=== PATIENT | female | born 1980 | race Caucasian/White ===

== ENCOUNTER 2021-04-13 15:07 | Outpatient (CLI) | payer OTHER, SELFPAY ==
--- NOTE | ~2021-04-13 | CT_ITS ---
EXAMINATION: CT abdomen pelvis w con DATE: 04/13/2021 16:34 INDICATION: Abdominal mass. Unspecified abdominal pain. TECHNIQUE: Computed tomography (CT) of the abdomen and pelvis was performed with 100 mL Omnipaque 350 intravenous contrast. Automated exposure control and iterative reconstruction technique were employe d. The dose-length product was 276.87 mGy-cm. COMPARISON: CT abdomen and pelvis 02/27/2017 FINDINGS: The visualized portions of the lung bases demonstrate mild atelectasis. No pleural effusion . There are bilateral breast implants. The heart size is normal. No pericardial effusion. There is mi ld intrahepatic and extrahepatic biliary duct dilatation. The common duct measures 12 mm. Pneumobilia is noted, likely secondary to sphincterotomy. There are changes of cholecystectomy. The spleen, panc reas, adrenal glands, and kidneys are normal. There are no dilated loops of bowel. There is a large v olume of stool in the colon. The appendix is normal. There are no pathologically enlarged lymph nodes . There is no free intraperitoneal fluid. There is a skin marker in left anterior abdomen. There are changes of disc replacement at L5-S1. IMPRESSION: 1. No abnormal mass in the area of the skin marker in the left anterior abdomen. 2. Mild intrahepatic and extrahepatic biliary duct dilatation status post cholecystectomy. Correlate with liver function tests to determine if this finding is clinically significant. Reviewed, dictated and finalized at location A. IMPRESSION: 1. No abnormal mass in the area of the skin marker in the left anterior abdomen . 2. Mild intrahepatic and extrahepatic biliary duct dilatation status post truong cystectomy. Correlate with liver function tests to determine if this finding is clinically significant.
== END 2021-04-13 15:08 | disposition home or self-care (01) ==
LOC: ANHIMG 15:12
PROVIDERS: PCP Internal Medicine; Visit Provider Obstetrics & Gynecology
DX: R19.00 Intra-abdominal and pelvic swelling, mass and lump, unspecified site (principal); Z90.49 Acquired absence of other specified parts of digestive tract
CPT/HCPCS: 74177; Q9967

== ENCOUNTER 2024-11-18 10:25 | Outpatient (CLI) | payer OTHER, SELFPAY ==
--- NOTE | ~2024-11-18 | CT_ITS ---
CT of the Abdomen and Pelvis: Indication: Abdominal pain Technique: 2.5 mm axial scans were obtained through the abdomen and pelvis following intravenous adm inistration of 100 cc of Omnipaque 350. Dose reduction technique was used on this scan by utilizing a utomated exposure control and iterative reconstruction technique. The dose-length product (DLP) was 5 85.67 mGy-cm. COMPARISON: 04/13/2021 Findings: Scans through the lung bases are unremarkable. There is diffuse hepatic steatosis. Status post cholecystectomy with pneumobilia. The spleen, pancrea s, adrenals and kidneys are within normal limits. No evidence of aortic aneurysm. No lymphadenopath y. No bowel obstruction or bowel wall thickening. There is no evidence to suggest acute appendicitis. Images through the pelvis were performed. Urinary bladder unremarkable. No pelvic mass seen. No ascit es. Impression: No acute abnormality. Diffuse hepatic steatosis. Status post cholecystectomy with pneumobilia. Reviewed, dictated and finalized at [facility]. Impression: No acute abnormality. Diffuse hepatic steatosis. Status post cholecystectomy with pneumobilia.
--- OUTSIDE RECORDS SUMMARY | 2024-11-18 10:37 | XMS_ITS | Clinical Summary ---
Author Organization [facility] Address [address] [place] [address] Care Team Providers Care Data Control Assistant Name Role Phone Eliel Khan MD Primary Care Provider [phone] Source Comments [facility] and Associated Physician Practices is amultiple site organization consisting of ambulatory clinics and hospital sitesin [place], [place], [place] and [place]. This disclosure is being madepursuant to the Care Everywhere program and may not contain all information available regarding this patient. Last updated 18.[facility] Allergies Active Allergy Reactions Criticality Noted Date Comments Amoxicillin Rash Medium 09/08/2015 Cephalexin Rash Medium 09/08/2015 Doxycycline Rash Medium 09/08/2015 Morphine Rash Medium 09/08/2015 Prochlorperazine Unknown 12/09/2019 Medications * Be aware that medications may not be up to date on this document. Alwaysverify current medications with the patient. HYDROcodone-acet aminophen (NORCO) 7.5-325 MG tablet Take by mouth every 6 hours as needed 7 Active ibuprofen (MOTRIN) 800 MG tablet Take 1 (one) tablet by mouth as needed 8 Active estradiol (ESTRACE) 1 MG tablet 1 (one) tablet once daily 9 Active carisoprodol (SOMA) 350 MG tablet 1 (one) tablet 3 times daily 9 Active cyanocobalamin (VITAMIN B-12) 1000 MCG tablet Take 1 (one) tablet by mouth once daily Active VITAMIN D PO Take 1 tablet by mouth once daily Active ondansetron (ZOFRAN) 8 MG tabletIndication s:Intractable chronic migraine without aura and without status migrainosus Take 1 (one) tablet by mouth every 6 hours as needed for Nausea/Vomiti ng 30 tablet 3 2 Active SUMAtriptan (Imitrex) 100 MG tabletIndication s:Intractable chronic migraine without aura and without status migrainosus TAKE 1 TABLET BY MOUTH NEEDED FOR MIGRAINE. MAY REPEAT IN 2 HOURS IF NEEDED. NO MORE THAN 2 DOSES IN 24 HOURS 8 tablet 11 4 Active amitriptyline (Elavil) 100 MG tabletIndication s:Intractable chronic migraine without aura and without status migrainosus Take 1 (one) tablet by mouth at bedtime 90 tablet 3 4 Active propranolol ER 24hr (Inderal LA) 60 MG capsuleIndicatio ns:Intractable chronic migraine without aura and without status migrainosus Take 1 (one) capsule by mouth once daily 90 capsule 3 4 Active azithromycin (Zithromax) 250 MG tablet TAKE 2 TABLETS BY MOUTH ON DAY 1, AND THEN TAKE 1 TABLET BY MOUTH ONCE A DAY ON DAY 2 THROUGH DAY 5 5 Active cetirizine (ZyrTEC) 10 MG tablet Take 1 (one) tablet by mouth once daily 5 Active onabotulinumtoxi n A (Botox) 200 units injectionIndicat ions:Migraine Inject 200 (two hundred) Units into muscle once for 1 dose Reasons: Migraine Headache 1 Each 5 11/14/19 25 Hospital, Clinic, or Other Facility Administered Medication Ordered Dose Route Frequency Start Date End Date Status onabotulinumtoxin A (Botox) injection 200 UnitsIndications:Migraine 200 Units IM ONCE 11/13/2024 11/13/2024 Ended Active Problems Problem Noted Date Diagnosed Date 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 Disorder of soft tissue 08/18/2022 Overview (09/30/2022): Added automatically from request for surgery [id number] Neoplasm of skin 03/14/2019 01/20/2023 Overview (01/20/2023): Acne, unspecified;Practice ID: 0001 Neoplasm of unsp behavior of bone, soft tissue, and skin;Recorded Elsewhere: No Location: [facility] Source: EHR Chronic: N Practice ID: [id number] Billable Time: 10:30:00 AM Neoplastic disease 03/14/2019 04/26/2023 Overview (04/26/2023): Neoplasm of unsp behavior of bone, soft tissue, and skin;Recorded Elsewhere: No Location: [facility] Source: EHR Chronic: N Practice ID: [id number] Billable Time: 10:30:00 AM Intractable chronic migraine without aura and without status migrainosus 08/31/2018 Vitamin B12 deficiency 08/01/2018 Vitamin D deficiency 08/01/2018 Follicular cyst of left ovary 04/11/2018 Endometriosis of pelvic peritoneum 04/11/2018 01/20/2023 Overview (01/20/2023): Endometriosis of pelvic peritoneum;Practice ID: 0001 Benign neoplasm of skin of trunk 03/02/2018 01/20/2023 Overview (01/20/2023): Other benign neoplasm of skin of trunk;Practice ID: 0001 Left lower quadrant pain 12/19/2017 Overview (01/20/2023): LLQ pain;Recorded Elsewhere: No Location: [facility] Source: EHR Chronic: N Practice ID: [id number] Billable Time: 02:30:00 PM Breast lump 12/01/2017 01/20/2023 Overview (01/20/2023): Unspecified lump in unspecified breast;Recorded Elsewhere: No Location: [facility] Source: EHR Chronic: N Practice ID: [id number] Billable Time: 10:30:00 AM Cervical radiculopathy 11/14/2017 Abdominal mass 08/08/2017 Disorder of bile duct 08/08/2017 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 Inflammation of cervix 02/22/2017 Cyst of ovary 01/04/2017 01/20/2023 Overview (01/20/2023): Ovarian cyst, NOS;Recorded Elsewhere: No Location: [facility] Source: EHR Chronic: N Practice ID: [id number] Billable Time: 04:00:00 PM Unspecified ovarian cyst, right side;Recorded Elsewhere: No Location: [facility] Source: EHR Chronic: N Practice ID: [id number] Billable Time: 02:00:00 PM Pelvic and perineal pain 12/22/2016 023 Overview (01/20/2023): Pelvic and perineal pain;Recorded Elsewhere: No Location: [facility] Source: EHR Chronic: N Practice ID: [id number] Billable Time: 03:15:00 PM Pain of female genitalia 12/20/2016 023 Overview (01/20/2023): Dysmenorrhea, unspecified;Recorded Elsewhere: No Location: [facility] Source: EHR Chronic: N Practice ID: [id number] Billable Time: 05:15:00 PM Cervical low risk human oscar llomavirus (HPV) DNA test positive 12/12/2016 Low grade squamous intraepit helial lesion (LGSIL) on Papanicolaou smear of cervix 12/12/2016 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01/20 Overview (01/20/2023): Mild cervical dysplasia;Practice ID: 0001 Abdominal migraine, not intractable 05/06/2016 Non-intractable cyclical vomiting with nausea Migraine without aura and wi thout status migrainosus, not intractable 05/06/2016 Lymphadenopathy 10/21/2015 01/20/2023 Overview (01/20/2023): Enlarged lymph nodes, unspecified;Recorded Elsewhere: No Location: [facility] Source: EHR Chronic: N Practice ID: [id number] Billable Time: 03:15:00 PM Hemorrhoids 10/06/2015 01/20/2023 Overview (01/20/2023): Hemorrhoid;Recorded Elsewhere: No Location: [facility] Source: EHR Chronic: N Practice ID: [id number] Billable Time: 01:15:00 PM Ulceration of vulva 10/06/2015 01/20/2023 Overview (01/20/2023): Ulceration of vulva;Practice ID: 0001 Acute vaginitis 09/02/2015 01/20/2023 Overview (01/20/2023): Vaginitis;Recorded Elsewhere: No Location: [facility] Source: EHR Chronic: N Practice ID: [id number] Billable Time: 02:45:00 PM test negative 06/14/2015 01/21/20 Overview (01/20/2023): Encounter for test, result negative;Practice ID: 0001 Pain of breast 02/26/2015 01/20/2023 Overview (01/20/2023): Mastodynia;Practice ID: 0001 Diarrhea 02/28/2014 Indigestion 02/28/2014 Abdominal hernia 07/17/2013 01/20/2023 Overview (01/20/2023): Hernia of other specified sites without mention of obstruction or gangrene;Recorded Elsewhere: No Location: [facility] Source: EHR Chronic: N Practice ID: [id number] Billable Time: 01:00:00 PM Delivery normal 03/28/2012 01/20/2023 Overview (01/20/2023): Normal delivery;Practice ID: 0001 Single live 03/28/2012 01/20/2023 Overview (01/20/2023): Mother with single liveborn;Practice ID: 0001 Abnormal glucose level 03/20/2012 Overview (01/20/2023): OTHER ABNORMAL GLUCOSE;Recorded Elsewhere: No Location: [facility] Source: EHR Chronic: N Practice ID: [id number] Billable Time: 01:00:00 PM Abnormal glucose tolerance t est (GTT) during , antepartum 03/06/2012 01/20/2023 Overview (01/20/2023): Gestatational Diabetes Antepartum;Practice ID: 0001 Primigravida 02/22/2012 01/20/2023 Overview (01/20/2023): Supervision of normal first ;Practice ID: 0001 Encounters Date Type Department Care Team Description 11/13/2024 9:00 AM CDT Procedure visit [facility] - Neurology [address] [place] [address] [phone] Pamela Abraham N, DO Chronic migraine w/o aura w/o status migrainosus, not intractable 11/13/2024 Travel from Last 3 Months Family History Medical History Relation Name Comments None Known Father Status: Alive None Known Mother Status: Alive Migraine Neg Hx Relation Name Status Comments Father Mother Social History Tobacco Use Types Packs/Day Years Used Date Smoking Tobacco: Every Day Cigarettes Smokeless Tobacco: Never Tobacco Cessation:Ready to Q uit: Not Asked; Counseling Given: Not Answered Alcohol Use Standard Drinks/Week Comments No 0 (1 standard drink = 0.6 oz pur e alcohol) Comments No Sex and Gender Information Value Date Recorded Sex Assigned at Not on file Legal Sex Female 5:14 PM 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 Gender Identity Not on file Sexual Orientation Not on file Last Filed Vital Signs Vital Sign Reading Time Taken Comments Blood Pressure 125/85 11/13/2024 8:34 AM CDT Pulse 69 11/13/2024 8:34 AM CDT Temperature 36.7 C (98.1 F) 03/01/2024 10:20 AM CDT Respiratory Rate 20 03/01/2024 10:20 AM CDT Oxygen Saturation 98% 11/13/2024 8:34 AM CDT Inhaled Oxygen Concentration - - Weight 66 kg (145 lb 8 oz) 11/13/2024 8:34 AM CD T Height 162.6 cm (5' 4 ) 03/01/2024 10:27 AM CDT Body Mass Index 24.98 03/01/2024 10:27 AM CDT Plan of Treatment Upcoming Encounters Date Type Department Care Team (Late st Contact Info) Description 02/12/2025 9:00 AM CDT Procedure visit [facility] - Neurology [address] [place] [address] [phone] Pamela Abraham Jacques, DO [address] [place] [phone] Health Maintenance Due Date Last Done Comments HIV SCREENING 1996 HEPATITIS C SCREENING 11/28/1999 DTAP/TDAP/TD VACCINES (1 - Tdap) 2000 HEPATITIS B VACCINE (1 of 3 - 19+ 3-dose series) 2000 PNEUMOCOCCAL VACCINE (1 of 2 - PCV) 2000 SCREENING FOR DIABETES 05/23/2023 09/13/2016 COVID-19 VACCINE (1 - 2023-2 5 season) 2024 DEPRESSION SCREENING 07/10/2024 MAMMOGRAM 09/10/2026 09/10/2024, 09/10/2024 PAP SMEAR 08/20/2027 08/20/2024, 12/25/2020 INFLUENZA VACCINE (Season Ended) 2029 Postponed from 03/10 (Other Provider Directed) LIPID TESTING 08/20/2029 08/20/2024, 12/25/2020 ZOSTER VACCINE (1 of 2) 12/03/2031 HIB VACCINE Aged Out No longer eligi ble based on patient's age to complete this topic HPV VACCINE Aged Out No longer eligi ble based on patient's age to complete this topic MENINGOCOCCAL (Group B) VACCINE SHARED DECISION-MAKING Aged Out No longer eligible b ased on patient's age to complete this topic MENINGOCOCCAL GROUPS A/C/Y/W VACCINE Aged Out No longer eligible b ased on patient's age to complete this topic Procedures Procedure Name Priority Date/Time Associated Diagnosis Comments BASIC METABOLIC PANEL (CALCIUM TOTAL) STAT 09/13/2016 5:03 PM 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 from Last 3 Months or Most Recently Relevant to Health Maintenance Results * (ABNORMAL) BASIC METABOLIC PANEL (CALCIUM TOTAL) (09/13/2016 5:03 PM 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) BUN 6(L) 7 - 26 mg/dL [facility] Creatinine 0.6 0.6 - 1.2 mg/dL [facility] Sodium 142 136 - 145 mmol/L [facility] Potassium 4.4 3.5 - 4.5 mmol/L [facility] Chloride 108(H) 98 - 107 mmol/L [facility] CO2 20(L) 22 - 29 mmol/L [facility] Glucose 95 70 - 115 mg/dL [facility] Calcium 9.5 8.4 - 10.2 mg/dL [facility] Anion Gap 18 8 - 18 [facility] BUN/Creatinine Ratio 10 7 - 23 [facility] Osmolality Calculated 291 270 - 300 mOsm/kg [facility] eGFR >60 >60 mL/min/1.7 3 m2 [facility] Blood specimen (specimen) BLOOD SPECIMEN / Unknown 09/13/2016 5:03 PM 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 09/13/2016 5:05 PM 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 us Surekha Khan MD LAB - CHEMISTRY ORDERABLES Fin al Result Performing Organization Address City/State/[facility] Co de Phone Number [address] [phone] from Last 3 Months or Most Recently Relevant to Health Maintenance Insurance [facility] Care Teams Data Control Assistant Relationship Specialty Start Date End Date Eliel Khan MD [address] [place] [address] PCP - General Internal Medicine 05/08/23
--- OUTSIDE RECORDS SUMMARY | 2024-11-18 10:37 | XMS_ITS | Clinical Summary ---
Author Organization [facility] Address [facility] [place] [address] Care Team Providers Care Manager Of Software Name Role Phone Eliel Khan MD Primary Care Provider [phone] Allergies Active Allergy Reactions Criticality Noted Date Comments Amoxicillin Rash Medium 09/08/2015 Cephalexin Rash Medium 09/08/2015 Doxycycline Rash,Swelling Medium 09/04/2013 Morphine Rash Medium 09/08/2015 Medications amitriptyline 100 MG tablet Take 100 mg by mouth. 6 Active ondansetron 8 MG disintegrating tablet 7 Active valACYclovir 1 G tablet 7 Active carisoprodol 350 MG tablet Take 350 mg by mouth 3 (three) times daily as needed for Muscle Spasms. Active ibuprofen 800 MG tablet 8 Active capsaicin 0.1 % cream APPLY SPARINGLY TO AFFECTED AREA(S) 3 TIMES A DAY 8 Active estradiol 1 MG tablet 12 9 Active vitamin B-12 (CYANOCOBALAMIN) 1000 mcg tablet Take 1,000 mcg by mouth daily. 9 Active SUMAtriptan 100 MG tablet 5 9 Active hydrocodone-acetam inophen (NORCO) 7.5-325 MG tablet 3 times daily Active diazepam 5 MG tablet 0 8 Active amitriptyline 100 MG tablet Take 100 mg by mouth. 9 Active ondansetron 8 MG tablet 0 9 Active cetirizine 10 MG tablet 6 Active acyclovir 400 MG tablet 0 9 Active onabotulinumtoxinA 100 units injection Inject 200 Units into the muscle every 3 (three) months. 8 Active Active Problems Problem Noted Date Diagnosed Date Cervical radiculopathy 11/14/2017 Family History Medical History Relation Comments Disc problems Father DDD Mother Relation Status Comments Brother Alive Father Alive Mother Alive Social History Tobacco Use Types Packs/Day Years Used Date Smoking Tobacco: Every Day Cigarettes 0.5 20 Smokeless Tobacco: Never Tobacco Cessation:Ready to Q uit: No; Counseling Given: Yes Comments:Verbalized beneftis of smoking cessation. Recommended she quit. Alcohol Use Standard Drinks/Week Comments No 0 (1 standard drink = 0.6 oz pur e alcohol) Comments No Sex and Gender Information Value Date Recorded Sex Assigned at Not on file Legal Sex Female 5:43 PM CDT Gender Identity Not on file Sexual Orientation Not on file Last Filed Vital Signs Vital Sign Reading Time Taken Comments Blood Pressure 123/92 01/01/2019 12:03 PM CDT Pulse 66 01/01/2019 12:03 PM CDT Temperature 36.7 C (98 F) 01/01/2019 10:24 AM CDT Respiratory Rate 16 01/01/2019 12:0 3 PM CDT Oxygen Saturation 97% 01/01/2019 12: 03 PM CDT Inhaled Oxygen Concentration - - Weight 65.2 kg (143 lb 12.8 oz) 019 10:35 AM CDT Height 162.6 cm (5' 4 ) 11/20/2018 10:3 5 AM CDT Body Mass Index 24.68 11/20/2018 10:35 AM CDT Plan of Treatment Health Maintenance Due Date Last Done Comments Annual Physical 1984 Hepatitis C 12/03/1999 DTaP, Tdap and Td Vaccines ( 1 - Tdap) 2000 Hepatitis B Vaccines (1 of 3 - 19+ 3-dose series) 2000 Pneumococcal Vaccine: Pediat rics (0 to 5 Years) and At-Risk Patients (6 to 49 Years) (1 of 2 - PCV) 2000 Mammogram Screening 2021 COVID-19 Vaccine ( - 2023-2 5 season) 2024 HPV Vaccines Aged Out No longer eligi ble based on patient's age to complete this topic Meningococcal B Vaccine Aged Out No l onger eligible based on patient's age to complete this topic Meningococcal Vaccine Aged Out No john verenice eligible based on patient's age to complete this topic RSV Immunizations Under 20 Months Aged Out No longer eligible based on patient's age to complete this topic Additional Health Concerns Infection Onset Date Last 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
--- OUTSIDE RECORDS SUMMARY | 2024-11-18 10:37 | XMS_ITS ---
Author Organization 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 Disorder of soft tissue 08/18/2022 Overview (08/18/2022): Added automatically from request for surgery [id number] Neoplasm of skin 03/14/2019 Overview (08/19/2024): Acne, unspecified;Practice ID: 0001 Neoplasm of unsp behavior of bone, soft tissue, and skin;Recorded Elsewhere: No Location: [facility] Source: EHR Chronic: N Practice ID: [id number] Billable Time: 10:30:00 AM Neoplastic disease 03/14/2019 Overview (08/19/2024): Neoplasm of unsp behavior of bone, soft tissue, and skin;Recorded Elsewhere: No Location: [facility] Source: EHR Chronic: N Practice ID: [id number] Billable Time: 10:30:00 AM Intractable chronic migraine without aura and without status migrainosus 08/31/2018 Vitamin D deficiency 08/01/2018 Vitamin B12 deficiency 08/01/2018 Endometriosis of pelvic peritoneum 04/11/2018 Overview (08/19/2024): Endometriosis of pelvic peritoneum;Practice ID: 0001 Follicular cyst of left ovary 04/11/2018 Overview (08/19/2024): Follicular cyst of left ovary;Practice ID: 0001 Benign neoplasm of skin of trunk 03/02/2018 Overview (08/19/2024): Other benign neoplasm of skin of trunk;Practice ID: 0001 Left lower quadrant pain 12/19/2017 Overview (08/19/2024): LLQ pain;Recorded Elsewhere: No Location: [facility] Source: EHR Chronic: N Practice ID: [id number] Billable Time: 02:30:00 PM Breast lump 12/01/2017 Overview (08/19/2024): Unspecified lump in unspecified breast;Recorded Elsewhere: No Location: [facility] Source: EHR Chronic: N Practice ID: [id number] Billable Time: 10:30:00 AM Cervical radiculopathy 11/14/2017 Abdominal pain of multiple sites 08/11/2017 Abdominal mass 08/08/2017 Disorder of bile duct 08/08/2017 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 Endometriosis of uterus 02/22/2017 Overview (08/19/2024): Endometriosis of uterus;Practice ID: 0001 Inflammation of cervix 02/22/2017 Overview (08/19/2024): Inflammatory disease of cervix uteri;Practice ID: 0001 Cyst of ovary 01/04/2017 Overview (08/19/2024): Ovarian cyst, NOS;Recorded Elsewhere: No Location: [facility] Source: EHR Chronic: N Practice ID: [id number] Billable Time: 04:00:00 PM Unspecified ovarian cyst, right side;Recorded Elsewhere: No Location: [facility] Source: EHR Chronic: N Practice ID: [id number] Billable Time: 02:00:00 PM Pelvic and perineal pain 12/22/2016 Overview (08/19/2024): Pelvic and perineal pain;Recorded Elsewhere: No Location: [facility] Source: EHR Chronic: N Practice ID: [id number] Billable Time: 03:15:00 PM Pain of female genitalia 12/20/2016 Overview (08/19/2024): Dysmenorrhea, unspecified;Recorded Elsewhere: No Location: [facility] Source: EHR Chronic: N Practice ID: [id number] Billable Time: 05:15:00 PM Acne 12/12/2016 Overview (08/19/2024): Acne, unspecified;Practice ID: 0001 Cervical low risk human oscar llomavirus (HPV) DNA test positive 12/12/2016 Overview (08/19/2024): Cervical low risk HPV DNA test positive;Practice ID: 0001 Low grade squamous intraepit helial lesion (LGSIL) on Papanicolaou smear of cervix 12/12/2016 Overview (08/19/2024): Low grade intrepith lesion cyto smr crvx (LGSIL);Recorded Elsewhere: No Location: [facility] Source: EHR Chronic: N Practice ID: [id number] Billable Time: 04:00:00 PM 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 (08/19/2024): Mild cervical dysplasia;Practice ID: 0001 Abdominal migraine, not intractable 05/06/2016 Migraine without aura and wi thout status migrainosus, not intractable 05/06/2016 Lymphadenopathy 10/21/2015 Overview (08/19/2024): Enlarged lymph nodes, unspecified;Recorded Elsewhere: No Location: [facility] Source: EHR Chronic: N Practice ID: [id number] Billable Time: 03:15:00 PM Lymphadenopathy 10/21/2015 Overview (08/19/2024): Enlarged lymph nodes, unspecified;Recorded Elsewhere: No Location: [facility] Source: EHR Chronic: N Practice ID: [id number] Billable Time: 03:15:00 PM Hemorrhoids 10/06/2015 Overview (08/19/2024): Hemorrhoid;Recorded Elsewhere: No Location: [facility] Source: EHR Chronic: N Practice ID: [id number] Billable Time: 01:15:00 PM Ulceration of vulva 10/06/2015 Overview (08/19/2024): Ulceration of vulva;Practice ID: 0001 Acute vaginitis 09/02/2015 Overview (08/19/2024): Vaginitis;Recorded Elsewhere: No Location: [facility] Source: EHR Chronic: N Practice ID: [id number] Billable Time: 02:45:00 PM Pain of breast 02/26/2015 Overview (08/19/2024): Mastodynia;Practice ID: 0001 Diarrhea 02/28/2014 Indigestion 02/28/2014 Non-intractable cyclical vomiting with nausea Abdominal hernia 07/17/2013 Overview (08/19/2024): Hernia of other specified sites without mention of obstruction or gangrene;Recorded Elsewhere: No Location: [facility] Source: EHR Chronic: N Practice ID: [id number] Billable Time: 01:00:00 PM Delivery normal 03/28/2012 Overview (08/19/2024): Normal delivery;Practice ID: 0001 Abnormal glucose level 03/20/2012 Overview (08/19/2024): OTHER ABNORMAL GLUCOSE;Recorded Elsewhere: No Location: [facility] Source: EHR Chronic: N Practice ID: [id number] Billable Time: 01:00:00 PM Abnormal glucose level 03/20/2012 Overview (08/19/2024): OTHER ABNORMAL GLUCOSE;Recorded Elsewhere: No Location: [facility] Source: EHR Chronic: N Practice ID: [id number] Billable Time: 01:00:00 PM Abnormal glucose tolerance t est (GTT) during , antepartum 03/06/2012 Overview (08/19/2024): Gestatational Diabetes Antepartum;Practice ID: 0001 Current Treatment and Therapy Plans No current plan information found. Past Treatment and Therapy Plans No past plan information found. Lifetime Dose Tracking * Chemical Lifetime Dose Automatic Entry Manual Entr y DLP 262 mGycm 262 mGycm 0 mGycm
--- OUTSIDE RECORDS SUMMARY | 2024-11-18 10:37 | XMS_ITS | Data Portability ---
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 Patient will come back in a year unless there are new symptoms. [email or web address] Not available 12/25/2020 14:32:17 08/20/2024 08/20/2024 Annual gynecological exam performed. Patient will come back in a year unless there are new symptoms. Not available 08/20/2024 12:42:32 Plan of Treatment Reminders Order Date Submit Date Provider Last Modified By Organization Details Last Modified Time Details Appointments None recorded. Lab CBC w/ auto diff 2024 025 [facility] (Lab), [address], [place], [address], 5 05:44:58 CMP, serum or plasma 2024 025 [facility] (Lab), [address], [place], [address], 5 05:45:00 lipid panel, blood 2024 025 [facility] (Lab), [address], [place], [address], 5 05:44:59 TSH, serum or plasma 2024 025 [facility] (Lab), [address], [place], [address], 5 05:44:58 25-hydroxy vitamin D2 + 25-hydroxy vitamin D3, QN, serum or plasma 2024 025 [facility] (Lab), [address], [place], [address], 5 05:44:59 estradiol, serum 2024 025 [facility] (Lab), [address], [place], [address], 5 05:44:59 CBC w/ auto diff 2020 021 [facility] (Lab), [address], [place], [address], 1 03:36:11 CMP, serum or plasma 2020 021 [facility] (Lab), [address], [place], [address], 1 03:36:13 lipid panel, blood 2020 021 [facility] (Lab), [address], [place], [address], 1 03:36:12 TSH, serum or plasma 2020 021 [facility] (Lab), [address], [place], [address], 1 03:36:13 vitamin D, 25-hydroxy , total, serum 2020 021 [facility] (Lab), [address], [place], [address], 1 03:36:13 Referral None recorded. Procedures None recorded. Surgeries None recorded. Imaging None recorded. Medication Orders estradiol 1 mg tablet 2020 021 [facility] [address], [address], [place], [address], 14:47:12 Patient TargetsNo targets recorded. Patient InstructionsNo instructions recorded. Reason for Referral None Reported. Results Created Date Observation Date Name Description Value Unit Range Abnormal Flag Note LastModifiedBy Organization Detail LastModifiedTime 12/26/19 21 12/25/2020 CBC w/ auto diff WBC 10.0 10'3/ uL 3.6-10 .2 Not Available [facility] (Lab) [address], [place], [address], 12/26/2020 03:36:11 12/26/19 21 12/25/2020 CBC w/ auto diff RBC 4.30 10'6/ uL (based on docume nted legal sex) 4.10-5 .30 Not Available [facility] (Lab) [address], [place], [address], 12/26/2020 03:36:11 12/26/19 21 12/25/2020 CBC w/ auto diff HGB 13.6 g/dL (based on docume nted legal sex) 11.9-1 5.8 Not Available [facility] (Lab) [address], [place], [address], 12/26/2020 03:36:11 12/26/19 21 12/25/2020 CBC w/ auto diff HCT 41.7 % (based on docume nted legal sex) 37.4-4 8.3 Not Available [facility] (Lab) [address] [place], [address], 12/26/2020 03:36:11 12/26/19 21 12/25/2020 CBC w/ auto diff MCV 96.0 fL 82.0-9 9.0 Not Available [facility] (Lab) [address] [place], [address], 12/26/2020 03:36:11 12/26/19 21 12/25/2020 CBC w/ auto diff MCH 31.0 pg 27.0-3 3.0 Not Available [facility] (Lab) [address], [place], [address], 12/26/2020 03:36:11 12/26/19 21 12/25/2020 CBC w/ auto diff MCHC 33.0 g/dL 32.0-3 6.0 Not Available [facility] (Lab) [address], [place], [address], 12/26/2020 03:36:11 12/26/19 21 12/25/2020 CBC w/ auto diff RDW 13.0 % 11.0-1 5.0 Not Available [facility] (Lab) [address], [place], [address], 12/26/2020 03:36:11 12/26/19 21 12/25/2020 CBC w/ auto diff plt 258 10'3/ uL 150-45 0 Not Available [facility] (Lab) [address], [place], [address], 12/26/2020 03:36:11 12/26/19 21 12/25/2020 CBC w/ auto diff MPV 11.1 fL Not Available [facility] (Lab) [address], [place], [address], 12/26/2020 03:36:11 12/26/19 21 12/25/2020 CBC w/ auto diff NRBC's 0.00 % 0 Not Available [facility] (Lab) [address], [place], [address], 12/26/2020 03:36:11 12/26/19 21 12/25/2020 CBC w/ auto diff absolute NRBCs 0.0 10'3/ uL 0 Not Available [facility] (Lab) [address], [place], [address], 12/26/2020 03:36:11 12/26/19 21 12/25/2020 CBC w/ auto diff neutrophils 57.0 % 37.0-7 2.0 Not Available [facility] (Lab) [address] [facility], [place], [address], 12/26/2020 03:36:11 12/26/19 21 12/25/2020 CBC w/ auto diff lymphocytes 34.0 % 16.0-4 8.0 Not Available [facility] (Lab) [address] [facility], [place], [address], 12/26/2020 03:36:11 12/26/19 21 12/25/2020 CBC w/ auto diff monocytes 6.0 % 4.0-14 .0 Not Available [facility] (Lab) [address] [place], [address], 12/26/2020 03:36:11 12/26/19 21 12/25/2020 CBC w/ auto diff eosinophils 2.0 % 0.0-9. 0 Not Available [facility] (Lab) [address] [place], [address], 12/26/2020 03:36:11 12/26/19 21 12/25/2020 CBC w/ auto diff basophils 1.0 % 0.0-2. 0 Not Available [facility] (Lab) [address] [place], [address], 12/26/2020 03:36:11 12/26/19 21 12/25/2020 CBC w/ auto diff immature granulocytes 0.0 % no define d refere nce range Not Available [facility] (Lab) [address] [place], [address], 12/26/2020 03:36:11 12/26/19 21 12/25/2020 CBC w/ auto diff absolute neutrophils 5.8 10'3/ uL 1.1-6. 0 Not Available [facility] (Lab) [address] [place], [address], 12/26/2020 03:36:11 12/26/19 21 12/25/2020 CBC w/ auto diff absolute lymphocytes 3.4 10'3/ uL 0.7-3. 4 Not Available [facility] (Lab) [address] [place], [address], 12/26/2020 03:36:11 12/26/19 21 12/25/2020 CBC w/ auto diff absolute monocytes 0.6 10'3/ uL 0.3-1. 0 Not Available [facility] (Lab) [address] [facility], [place], [address], 12/26/2020 03:36:11 12/26/19 21 12/25/2020 CBC w/ auto diff absolute eosinophils 0.2 10'3/ uL 0.0-0. 6 Not Available [facility] (Lab) [address] [facility], [place], [address], 12/26/2020 03:36:11 12/26/19 21 12/25/2020 CBC w/ auto diff absolute basophils 0.1 10'3/ uL 0.0-0. 1 Not Available [facility] (Lab) [address] [place], [address], 12/26/2020 03:36:11 12/26/19 21 12/25/2020 CBC w/ auto diff absolute immature granulocytes 0.00 10'3/ uL 0.00-0 .10 2020 1:45 AM: P indic ates parti al resul ts on a panel have been relea sed. Addit ional resul ts will follo w. 2020 1:45 AM: This resul t has been final verif ied. No addit ional or mcconnell ed resul ts are expec maria ines. Not Available [facility] (Lab) [address] [place], [address], 12/26/2020 03:36:11 12/26/19 21 12/25/2020 lipid panel , blood total cholesterol 201 mg/dL 0-199 high Not Available [facility] (Lab) [address], [place], [address], 12/26/2020 03:36:12 12/26/19 21 12/25/2020 lipid panel , blood triglyceride s 152 mg/dL 0.00-1 50.00 high NCEP Refer ence Value s for Trigl yceri emerson: Tamiko l: <150 mg/dL Borde rline High: 150 - 199 mg/dL High: 200 - 499 mg/dL Very High: >/= 500 mg/dL Not Available [facility] (Lab) [address], [place], [address], 12/26/2020 03:36:12 12/26/19 21 12/25/2020 lipid panel , blood HDL cholesterol 48 mg/dL 23-92 Not Available [facility] (Lab) [address], [place], [address], 12/26/2020 03:36:12 12/26/19 21 12/25/2020 lipid panel , blood LDL cholesterol 123 mg/dL 0-99 high Cutof f value s recom joe d by the Natio nal Darlene stero l Educa tion Progr am: EDUARDO ABLE: Darlene stero l <200 mg/dL LDL <100 mg/dL BORDE RLINE : Darlene stero l 200-2 39 mg/dL LDL 101-1 59 mg/dL HIGHE R RISK: Darlene stero l >240 mg/dL LDL >160 mg/dL , HDL <40 mg/dL Not Available [facility] (Lab) [address] [facility], [place], [address], 12/26/2020 03:36:12 12/26/1912/25/2020 lipid panel , blood non-HDL cholesterol 153 mg/dL no refere nce range A reaso nable goal for non-H DL darlene stero l is one that is 30 mg/dL highe r than the LDL darlene stero l goal. Not Available [facility] (Lab) [address] [place], [address], 12/26/2020 03:36:12 12/26/19 21 12/25/2020 lipid panel , blood chol/HDL ratio 4.2 . 0.0-5. 0 Not Available [facility] (Lab) [address] [facility], [place], [address], 12/26/2020 03:36:12 12/26/19 21 12/25/2020 CMP, serum or plasm a sodium 138 mmol/ L 136-14 5 Not Available [facility] (Lab) [address], [place], [address], 12/26/2020 03:36:12 12/26/19 21 12/25/2020 CMP, serum or plasm a potassium 4.2 mmol/ L 3.5-5. 1 Not Available [facility] (Lab) [address] [place], [address], 12/26/2020 03:36:12 12/26/19 21 12/25/2020 CMP, serum or plasm a chloride 104 mmol/ L 98-107 Not Available [facility] (Lab) [address] [facility], [place], [address], 12/26/2020 03:36:12 12/26/19 21 12/25/2020 CMP, serum or plasm a carbon dioxide 27 mmol/ L 21-31 Not Available [facility] (Lab) [address] [place], [address], 12/26/2020 03:36:12 12/26/19 21 12/25/2020 CMP, serum or plasm a anion gap 7 mmol/ L 4-13 Not Available [facility] (Lab) [address] [place], [address], 12/26/2020 03:36:12 12/26/19 21 12/25/2020 CMP, serum or plasm a blood urea nitrogen 11 mg/dL 7-25 Not Available [facility] (Lab) [address], [place], [address], 12/26/2020 03:36:12 12/26/19 21 12/25/2020 CMP, serum or plasm a creatinine 0.75 mg/dL 0.60-1 .30 Not Available [facility] (Lab) [address] [place], [address], 12/26/2020 03:36:12 12/26/19 21 12/25/2020 CMP, serum or plasm a GFR () 104 mL/mi n/1.7 3_m2 60-300 Not Available [facility] (Lab) [address] [facility], [place], [address], 12/26/2020 03:36:12 12/26/19 21 12/25/2020 CMP, serum or plasm a GFR (others) 86 mL/mi n/1.7 3_m2 60-300 Not Available [facility] (Lab) [address] [facility], [place], [address], 12/26/2020 03:36:12 12/26/19 21 12/25/2020 CMP, serum or plasm a calcium 9.2 mg/dL 8.6-10 .2 Not Available [facility] (Lab) [address] [place], [address], 12/26/2020 03:36:12 12/26/1912/25/2020 CMP, serum or plasm a glucose 114 mg/dL 70-100 high Not Available [facility] (Lab) [address] [place], [address], 12/26/2020 03:36:12 12/26/1912/25/2020 CMP, serum or plasm a protein, total 6.9 g/dL 6.4-8. 3 Not Available [facility] (Lab) [address] [place], [address], 12/26/2020 03:36:12 12/26/19 21 12/25/2020 CMP, serum or plasm a albumin 4.5 g/dL 3.5-5. 0 Not Available [facility] (Lab) [address] [place], [address], 12/26/2020 03:36:12 12/26/19 21 12/25/2020 CMP, serum or plasm a ALT 13 units /L 9-43 Not Available [facility] (Lab) [address] [place], [address], 12/26/2020 03:36:12 12/26/19 21 12/25/2020 CMP, serum or plasm a alkaline phosphatase 37 units /L 34-104 Not Available [facility] (Lab) [address] [place], [address], 12/26/2020 03:36:12 12/26/19 21 12/25/2020 CMP, serum or plasm a AST 14 units /L 13-39 Not Available [facility] (Lab) [address] [place], [address], 12/26/2020 03:36:12 12/26/19 21 12/25/2020 CMP, serum or plasm a bilirubin, total 0.3 mg/dL 0.2-1. 2 Not Available [facility] (Lab) [address] [place], [address], 12/26/2020 03:36:12 12/26/19 21 12/25/2020 TSH, serum or plasm a TSH 0.86 uIU/m L 0.30-5 .33 Not Available [facility] (Lab) [address] [place], [address], 12/26/2020 03:36:13 12/26/19 21 12/25/2020 vitam in D, 25-hy droxy , total , serum vitamin D, 25-hydroxy, total 44.4 NG/mL 30-80 NOTE: Defic iency : <20 ng/mL Insuf ficie ncy: 20-29 ng/mL Optim um Level : 30-80 ng/mL Possi ble Toxic ity: >80 ng/mL Most patie nts with toxic ity have level s >150 ng/mL . Not Available [facility] (Lab) [address], [place], [address], 12/26/2020 03:36:13 12/26/19 21 12/25/2020 pap, IG + HR HPV image guided Pap, HPV regardless of Pap result SEE RESULT S BELOW CASE REPOR T: Cytol ogy Gynec ologi danilo Repor t Case: [id number] Autho antonio roque Provi jose: Haley Bucio MD Colle cted: 12/25 1413 Order ing Locat ion: [place] Path[facility] log[facility] Recei soledad: 12/26 0238 First Scree n: Daisha Beth, CT Speci men: Scree yun Pap - Image d, Cervi x STATE MENT OF ADEQU ACY: Satis facto ry for evalu ation Trans forma tion zone compo nent absen t FINAL DIAGN OSIS: Negat demetri for Intra epith elial Lesio n or Jass alvarez Elect michael mariaa efrain d by Daisha Beth, CT on 2020 at 3:59 PM ----- ----- ----- ----- ----- ----- ----- ----- ----- ----- ----- ----- ----- ----- ----- ----- ----- ---- HPV RESUL TS: HPV mRNA E6/E7 : No HPV mRNA Detec maria ines NOTE: This high risk HPV mRNA assay detec ts fourt een high- risk HPV types (16, 18, 31, 33, 35, 39, 45, 51, 52, 56, 58, 59, 66, 68) witho ut diffe renti ation . CHART ABLE COMME NT: Note: This speci men was revie wed by a Cytot echno logis t and/o r Patho logis t (as indic ated in this repor t) after evalu ation using the Thinp rep Imagi ng Syste m. CLINI DANILO INFOR MATIO N: Menst rual Statu s: LMP (if appli cable ): 015 Clini danilo Histo ry/Pr eviou s Pap: Type of Neopl nino (if appli cable ): Other Histo ry: Hormo sujata (if appli cable ): PAP EDUCA RADHA L NOTE: The Pap Test is a scree yun test with an inher ent false negat demetri rate. Liqui d-bas e sampl ing may decre ase, but will not elimi judd, false negat demetri resul ts. A negat demetri resul t does not precl ude the prese nce and/o r devel opmen t of disea se, since the prese nce of abnor mal cells in the sampl e depen ds on the locat ion of the lesio n and sampl ing techn ique. Fredy nued regul ar scree yun is the best metho d of cance r preve ntion . If repor maria ines cytol ogic findi ng do not corre late with physi danilo and/o r histo rical findi ngs, furth er inves tigat ion is recom joe d, as clini delta garcia nted. Not Available [facility] (Lab) [address] [facility], [place], [address], 12/28/2020 17:02:25 08/20/19 25 08/20/2024 CBC W/DIF F WBC 9.7 10'3/ uL 3.5-10 .5 Not Available [facility] (Lab) [address], [place], [address], 08/21/2024 05:44:57 08/20/19 25 08/20/2024 CBC W/DIF F RBC 5.03 10'6/ uL (based on docume nted legal sex) 3.80-5 .20 Not Available [facility] (Lab) [address] [place], [address], 08/21/2024 05:44:57 08/20/19 25 08/20/2024 CBC W/DIF F HGB 14.8 g/dL (based on docume nted legal sex) 11.6-1 5.4 Not Available [facility] (Lab) [address], [place], [address], 08/21/2024 05:44:57 08/20/19 25 08/20/2024 CBC W/DIF F HCT 44.9 % (based on docume nted legal sex) 34.0-4 5.0 Not Available [facility] (Lab) [address], [place], [address], 08/21/2024 05:44:57 08/20/19 25 08/20/2024 CBC W/DIF F MCV 89.3 fL 80.0-9 9.0 Not Available [facility] (Lab) [address], [place], [address], 08/21/2024 05:44:57 08/20/19 25 08/20/2024 CBC W/DIF F MCH 29.4 pg 27.0-3 4.0 Not Available [facility] (Lab) [address], [place], [address], 08/21/2024 05:44:57 08/20/19 25 08/20/2024 CBC W/DIF F MCHC 33.0 g/dL 32.0-3 5.5 Not Available [facility] (Lab) [address], [place], [address], 08/21/2024 05:44:57 08/20/19 25 08/20/2024 CBC W/DIF F RDW 13.3 % 11.0-1 5.0 Not Available [facility] (Lab) [address], [place], [address], 08/21/2024 05:44:57 08/20/19 25 08/20/2024 CBC W/DIF F plt 297 10'3/ uL 150-40 0 Not Available [facility] (Lab) [address], [place], [address], 08/21/2024 05:44:57 08/20/19 25 08/20/2024 CBC W/DIF F MPV 10.5 fL 8.8-12 .1 Not Available [facility] (Lab) [address] [facility], [place], [address], 08/21/2024 05:44:57 08/20/19 25 08/20/2024 CBC W/DIF F neutrophils 57.6 % 34.0-7 3.0 Not Available [facility] (Lab) [address] [facility], [place], [address], 08/21/2024 05:44:57 08/20/19 25 08/20/2024 CBC W/DIF F lymphocytes 33.0 % 15.0-5 0.0 Not Available [facility] (Lab) [address] [facility], [place], [address], 08/21/2024 05:44:57 08/20/19 25 08/20/2024 CBC W/DIF F monocytes 6.9 % 1.0-15 .0 Not Available [facility] (Lab) [address] [facility], [place], [address], 08/21/2024 05:44:57 08/20/19 25 08/20/2024 CBC W/DIF F eosinophils 1.5 % 0.0-8. 0 Not Available [facility] (Lab) [address], [place], [address], 08/21/2024 05:44:57 08/20/19 25 08/20/2024 CBC W/DIF F basophils 0.7 % 0.0-2. 0 Not Available [facility] (Lab) [address] [facility], [place], [address], 08/21/2024 05:44:57 08/20/19 25 08/20/2024 CBC W/DIF F immature granulocytes 0.3 % no define d refere nce range Immat ure Granu locyt es (IG) repre sents autom ated enume ratio n of Metam yeloc ytes, Myelo cytes and Promy elocy yesi when IG is < 5%. Blast s are not inclu ded in IG and repor maria ines separ ately if prese nt. Not Available [facility] (Lab) [address] [facility], [place], [address], 08/21/2024 05:44:57 08/20/19 25 08/20/2024 CBC W/DIF F absolute neutrophils 5.6 10'3/ uL 1.5-8. 0 Not Available [facility] (Lab) [address] [facility], [place], [address], 08/21/2024 05:44:57 08/20/19 25 08/20/2024 CBC W/DIF F absolute lymphocytes 3.2 10'3/ uL 1.0-4. 0 Not Available [facility] (Lab) [address] [facility], [place], [address], 08/21/2024 05:44:57 08/20/19 25 08/20/2024 CBC W/DIF F absolute monocytes 0.7 10'3/ uL 0.2-1. 0 Not Available [facility] (Lab) [address] [facility], [place], [address], 08/21/2024 05:44:57 08/20/19 25 08/20/2024 CBC W/DIF F absolute eosinophils 0.2 10'3/ uL 0.0-0. 6 Not Available [facility] (Lab) [address] [facility], [place], [address], 08/21/2024 05:44:57 08/20/19 25 08/20/2024 CBC W/DIF F absolute basophils 0.1 10'3/ uL 0.0-0. 3 Not Available [facility] (Lab) [address] [place], [address], 08/21/2024 05:44:57 08/20/19 25 08/20/2024 CBC W/DIF F absolute immature granulocytes 0.0 10'3/ uL 0.00-0 .10 Refer ence range s for nonbi nary/ inter sex or unspe cifie d gende r patie nts have not been estab lishe d. Pleas e refer to the follo wing table for range s estab lishe d for cisge nder patie nts and evalu ate in the clini danilo bhupinder xt of the indiv idual patie nt: https ://sonya de los santos book. nm.or g/Gen derX Not Available [facility] (Lab) [address] [facility], [place], [address], 08/21/2024 05:44:57 08/20/1908/20/2024 TSH, REFLE X FREE T4 TSH 1.19 uIU/m L 0.30-5 .33 Not Available [facility] (Lab) [address] [facility], [place], [address], 08/21/2024 05:44:58 08/20/19 25 08/20/2024 VITAM IN D, 25-OH (TOTA L D2/D3 ) vitamin D, 25-hydroxy, total 25.1 NG/mL 30.0-1 00.0 low Sugge stive of Defic iency : <20 ng/mL Sugge stive of Insuf ficie ncy: 20-29 ng/mL Sugge stive of Suffi cienc y: 30-10 0 ng/mL Sugge stive of Toxic ity: >150 ng/mL Not Available [facility] (Lab) [address] [place], [address], 08/21/2024 05:44:59 08/20/19 25 08/20/2024 ESTRA DIOL estradiol 27.0 pg/mL This assay was perfo rmed using [employer] ratio n reage nts and test kits. Value s obtai paula with other assay metho ds or kits canno t be used inter mcconnell eably . Femal e Estra diol Range s: Folli cular phase 12.4- 233 pg/mL Ovula tion phase 41.0- 398 pg/mL Lutea l phase 22.3- 341 pg/mL Postm enopa usal <5-13 8 pg/mL Healt hy Pregn ant Women 1st Trime ster 154-3 243 pg/mL 2nd Trime ster 1561- 57344 pg/mL 3rd Trime ster 8525- >3000 0 pg/mL Not Available [facility] (Lab) [address] [place], [address], 08/21/2024 05:44:59 08/20/19 25 08/20/2024 LIPID PANEL ,AMA (LDL- CALC) total cholesterol 302 mg/dL 0-199 high Not Available [facility] (Lab) [address] [place], [address], 08/21/2024 05:44:59 08/20/19 25 08/20/2024 LIPID PANEL ,AMA (LDL- CALC) triglyceride s 164 mg/dL 0-150 high NCEP Refer ence Value s for Trigl yceri emerson: Tamiko l: <150 mg/dL Borde rline High: 150 - 199 mg/dL High: 200 - 499 mg/dL Very High: >/= 500 mg/dL Not Available [facility] (Lab) [address] [place], [address], 08/21/2024 05:44:59 08/20/19 25 08/20/2024 LIPID PANEL ,AMA (LDL- CALC) HDL cholesterol 56 mg/dL >40 Not Available [facility] (Lab) [address] [place], [address], 08/21/2024 05:44:59 08/20/19 25 08/20/2024 LIPID PANEL ,AMA (LDL- CALC) LDL cholesterol 213 mg/dL 0-99 high Cutof f value s recom joe d by the Natio nal Darlene stero l Educa tion Progr am: EDUARDO ABLE: Darlene stero l <200 mg/dL LDL <100 mg/dL BORDE RLINE : Darlene stero l 200-2 39 mg/dL LDL 101-1 59 mg/dL HIGHE R RISK: Darlene stero l >240 mg/dL LDL >160 mg/dL , HDL <40 mg/dL Not Available [facility] (Lab) [address] [facility], [place], [address], 08/21/2024 05:44:59 08/20/19 25 08/20/2024 LIPID PANEL ,AMA (LDL- CALC) non-HDL cholesterol 246 mg/dL no refere nce range A reaso nable goal for non-H DL darlene stero l is one that is 30 mg/dL highe r than the LDL darlene stero l goal. Not Available [facility] (Lab) [address], [place], [address], 08/21/2024 05:44:59 08/20/19 25 08/20/2024 LIPID PANEL ,AMA (LDL- CALC) chol/HDL ratio 5.4 . 0.0-5. 0 high On November 01, 2022, [facility] labor atori es mcconnell ed the equat ion for calcu latin g estim ated low-d ensit y lipop rotei n-cho leste rol (LDL- C) from the Fried dipti equat ion to the Bernadine chad/Chalino aggarwal equat ion. This new equat ion is only valid for lipid panel s with trigl yceri emerson < 400 mg/dL . Studi es have demon strat ed that this new equat ion will impro ve the accur acy of LDL-C , espec ially in scena [place] when LDL-C hilda ntrat ions are relat ively low (< 100 mg/dL ), trigl yceri emerson are eleva maria ines, or patie nt is non-f astin g. Refer ences : - Bernadine bonilla, Niko Balnd, John Avalos , Darin roth, Parrish Hdz, Parrish chowdhury, Jared lynn , and Damian Mccall . 2013. Comp ariso n of a Novel Metho d vs the Fried dipti Equat ion for Estim ating Low-D ensit y Lipop rotei n Darlene stero l Level s from the Stand bunny Lipid Chan phillips. JAYNE: The [employer] [facility] iatio n 310 ): 2060- . - Xiomy morris V, Concepcion J, Jozef morris A, Joey M, Aleida quintero R, Zachary morris E, Mary lynn RS, Cal SR, Bernadine n SS. Fast ing Versu s Nonfa sting and Low-D ensit y Lipop rotei n Darlene stero l Accur acy. Circu latio n. 2017Jul 11;137 (1):1 0-19. Not Available [facility] (Lab) [address] [place], [address], 08/21/2024 05:44:59 08/20/19 25 08/20/2024 CMP(C OMPRE HENSI VE METAB OLIC PANEL ) sodium 139 mmol/ L 133-14 6 Not Available [facility] (Lab) [address] [place], [address], 08/21/2024 05:45:00 08/20/19 25 08/20/2024 CMP(C OMPRE HENSI VE METAB OLIC PANEL ) potassium 4.1 mmol/ L 3.5-5. 1 Not Available [facility] (Lab) [address] [place], [address], 08/21/2024 05:45:00 08/20/19 25 08/20/2024 CMP(C OMPRE HENSI VE METAB OLIC PANEL ) chloride 102 mmol/ L 98-107 Not Available [facility] (Lab) [address] [place], [address], 08/21/2024 05:45:00 08/20/19 25 08/20/2024 CMP(C OMPRE HENSI VE METAB OLIC PANEL ) carbon dioxide 20 mmol/ L 21-31 low Not Available [facility] (Lab) [address] [place], [address], 08/21/2024 05:45:00 08/20/19 25 08/20/2024 CMP(C OMPRE HENSI VE METAB OLIC PANEL ) anion gap 17 mmol/ L 4-13 high Not Available [facility] (Lab) [address] [facility], [place], [address], 08/21/2024 05:45:00 08/20/19 25 08/20/2024 CMP(C OMPRE HENSI VE METAB OLIC PANEL ) blood urea nitrogen 11 mg/dL 7-25 Not Available [facility] (Lab) [address] [facility] [facility], [place], [address], 08/21/2024 05:45:00 08/20/19 25 08/20/2024 CMP(C OMPRE HENSI VE METAB OLIC PANEL ) creatinine 0.80 mg/dL 0.60-1 .30 Not Available [facility] (Lab) [address] [facility] [facility], [place], [address], 08/21/2024 05:45:00 08/20/19 25 08/20/2024 CMP(C OMPRE HENSI VE METAB OLIC PANEL ) egfrcr (CKD-epi 2020) >90 mL/mi n/1.7 3_m2 >=60 Not Available [facility] (Lab) [address] [place], [address], 08/21/2024 05:45:00 08/20/19 25 08/20/2024 CMP(C OMPRE HENSI VE METAB OLIC PANEL ) calcium 10.2 mg/dL 8.3-10 .5 Not Available [facility] (Lab) [address] [place], [address], 08/21/2024 05:45:00 08/20/19 25 08/20/2024 CMP(C OMPRE HENSI VE METAB OLIC PANEL ) glucose 85 mg/dL 70-100 Not Available [facility] (Lab) [address] [facility], [place], [address], 08/21/2024 05:45:00 08/20/19 25 08/20/2024 CMP(C OMPRE HENSI VE METAB OLIC PANEL ) protein, total 7.6 g/dL 6.4-8. 3 Not Available [facility] (Lab) [address] [facility], [place], [address], 08/21/2024 05:45:00 08/20/19 25 08/20/2024 CMP(C OMPRE HENSI VE METAB OLIC PANEL ) albumin 5.0 g/dL 3.5-5. 0 Not Available [facility] (Lab) [address] [facility], [place], [address], 08/21/2024 05:45:00 08/20/19 25 08/20/2024 CMP(C OMPRE HENSI VE METAB OLIC PANEL ) ALT 58 units /L 9-43 high Not Available [facility] (Lab) [address], [place], [address], 08/21/2024 05:45:00 08/20/19 25 08/20/2024 CMP(C OMPRE HENSI VE METAB OLIC PANEL ) alkaline phosphatase 51 units /L 34-104 Not Available [facility] (Lab) [address] [facility], [place], [address], 08/21/2024 05:45:00 08/20/19 25 08/20/2024 CMP(C OMPRE HENSI VE METAB OLIC PANEL ) AST 28 units /L 13-39 Not Available [facility] (Lab) [address] [place], [address], 08/21/2024 05:45:00 08/20/19 25 08/20/2024 CMP(C OMPRE HENSI VE METAB OLIC PANEL ) bilirubin, total 0.3 mg/dL 0.2-1. 2 Not Available [facility] (Lab) [address] [place], [address], 08/21/2024 05:45:00 08/20/19 25 08/20/2024 IMAGE GUIDE D PAP AND HPV REGAR DLESS image guided Pap, HPV regardless of Pap result SEE RESULT S BELOW CASE REPOR T: Cytol ogy Gynec ologi danilo Repor t Case: [id number] Autho antonio roque Provi jose: Haley Bucio MD Colle cted: 08/20 1338 Order ing Locat ion: [place] Patho logpaulina Recei soledad: 08/21 0208 First Noahe n: Tia Espinoza, CT Rescr een: Philipp Moreno, CT Speci men: Karime malcolm Pap - Image d, Vagin a STATE MENT OF ADEQU ACY: Satis facto ry for evalu ation ----- ----- ----- ----- ----- ----- ----- ----- ----- ----- ----- ----- ----- ----- ----- ----- ----- ---- FINAL DIAGN OSIS: Negat deemtri for Intra epith elial Oziel bonilla or Jass alvarez (NIL) . Elect sneha leroy efrain d by Philipp Moreno, CT on 2024 at 1520 [employer] ----- ----- ----- ----- ----- ----- ----- ----- ----- ----- ----- ----- ----- ----- ----- ----- ----- ---- HPV RESUL TS: HPV mRNA E6/E7 : No HPV mRNA Detec maria ines NOTE: This high risk HPV mRNA assay detec ts fourt een high- risk HPV types (16, 18, 31, 33, 35, 39, 45, 51, 52, 56, 58, 59, 66, 68) witho ut diffe renti ation . COMME NT: This speci men was revie wed by a Cytot echno logis t and/o r Patho logis t (as indic ated in this repor t) after evalu ation using the Thinp rep Imagi ng Syste m. CLINI DANILO INFOR MATIO N: Menst rual Statu s: LMP (if appli cable ): Clini danilo Histo ry/Pr eviou s Pap: Type of Neopl nino (if appli cable ): Signi fican t Clini danilo Findi ngs: Other Histo ry: Hormo sujata (if appli cable ): PAP EDUCA RADHA L NOTE: The Pap Test is a scree yun test with an inher ent false negat demetri rate. Liqui d-bas ed sampl ing may decre ase, but will not elimi judd, false negat demetri resul ts. A negat demetri resul t does not precl ude the prese nce and/o r devel opmen t of disea se, since the prese nce of abnor mal cells in the sampl e depen ds on the locat ion of the lesio n and sampl ing techn ique. Fredy nued regul ar scree uyn is the best metho d of cance r preve ntion . If repor maria ines cytol ogic findi ng do not corre late with physi danilo and/o r histo rical findi ngs, furth er inves tigat ion is recom joe d, as clini delta warra nted. Not Available [facility] (Lab) [address], [place], [address], 08/23/2024 16:24:09 04/14/20 21 04/13/2021 CT, abdom en + pelvi s, w/ contr ast No observ ation record ed. [facility] [address], [place], [address], 04/15/2021 21:02:22 Result Notes None recorded. Problems Name Problem SNOMED Code Status Onset Date Resolution Date Notes Provider Name and Address Organization Details Recorded Time Lymphade nopathy 48065834 Completed 201512/25/2020 Enlarged lymph nodes, unspecif ied;Javier rded Elsewher e: No Locat ion: [facility] S ource: EHR Acute Care Clinical Nurse Specialist jaydon: N Practi ce ID: 0001 Coy lable Time: 03:15:00 PM Clare Gregg [facility] 1 14:34:32 Surveill ance of contrace ption Completed 201412/25/2020 Encounte r for surveill ance of contrace ptives, unspecif ied;Javier rded Elsewher e: No Locat ion: [facility] S ource: EHR Acute Care Clinical Nurse Specialist jaydon: N Jacintati ce ID: 0001 Coy lable Time: 01:00:00 PM Clare Gregg [facility] 1 14:35:06 Cyst of ovary [id number] Completed 201612/25/2020 Unspecif ied ovarian cyst, right side;Rec orded Elsewher e: No Locat ion: [facility] N Jacintati ce ID: 0001 Coy lable Time: 02:00:00 PM Clarery Gregg [facility] 1 14:33:44 Pelvic and perineal pain [id number] Completed 201612/25/2020 Pelvic and perineal pain;Rec orded Elsewher e: No Locat ion: [facility] S ource: EHR Acute Care Clinical Nurse Specialist jaydon: N Jacintati ce ID: 0001 Coy lable Time: 03:15:00 PM Clarery Gregg [facility] 14:34:41 Left lower quadrant pain [id number] Completed 201712/25/2020 LLQ pain;Rec orded Elsewher e: No Locat ion: [facility]: N Jacintati ce ID: 0001 Coy lable Time: 02:30:00 PM Clarery Gregg [facility] 14:34:28 Neoplast ic disease [id number] Completed 201812/25/2020 Neoplasm of unsp behavior of bone, soft tissue, and skin;Rec orded Elsewher e: No Locat ion: [facility]: N Jacintati ce ID: 0001 Coy lable Time: 10:30:00 AM Clare pro [facility] 1 14:34:35 Clinical finding Completed 201412/25/2020 Presence of (intraut erine) contrace ptive device;R ecorded Elsewher e: No Locat ion: [facility] S ource: EHR Acute Care Clinical Nurse Specialist jaydon: N Jacintati ce ID: 0001 Coy lable Time: 03:00:00 PM Clare pro [facility] 1 14:33:38 Clinical finding Completed 201412/25/2020 Encounte r for surveill ance of injectab le contrace ptive;Re corded Elsewher e: No Locat ion: [facility] S ource: EHR Acute Care Clinical Nurse Specialist jaydon: N Jacintati ce ID: 0001 Coy lable Time: 01:00:00 PM Clare Gregg [facility] 1 14:33:35 Finding of sensatio n of breast Completed 201512/25/2020 Mastodyn ia;Recor ded Elsewher e: No Locat ion: [facility] S ource: EHR Acute Care Clinical Nurse Specialist jaydon: N Jacintati ce ID: 0001 Coy lable Time: 10:15:00 AM Clare pro [facility] 1 14:34:12 Hernia of abdomina l cavity [id number] Completed 201312/25/2020 Hernia of other specifie d sites without mention of obstruct ion or gangrene ;Recorde d Elsewher e: No Locat ion: [facility] S ource: EHR Acute Care Clinical Nurse Specialist jaydon: N Jacintati ce ID: 0001 Coy lable Time: 01:00:00 PM Clare pro [facility] 1 14:34:21 Insertio n of intraute rine contrace ptive device Completed 201412/25/2020 Encounte r for insertio n of intraute rine contrace ptive device;R ecorded Elsewher e: No [facility]at [facility]: EHR Acute Care Clinical Nurse Specialist jaydon: N Jacintati ce ID: 0001 Coy lable Time: 03:00:00 PM Clarery Gregg [facility] 14:34:25 Contrace ptive sheath status [id number] Completed 201512/25/2020 IUD follow up;Recor ded Elsewher e: No [facility]at [facility] S ource: EHR Acute Care Clinical Nurse Specialist jaydon: N Jacintati ce ID: 0001 Coy lable Time: 02:45:00 PM Clare [facility] 14:33:40 Hemorrho ids [id number] Completed 201512/25/2020 Hemorrho id;Recor ded Elsewher e: No [facility]: [facility] Acute Care Clinical Nurse Specialist jaydon: N Jacintati ce ID: 0001 Coy lable Time: 01:15:00 PM Clarery Gregg [facility] 14:34:19 Glucose level outside referenc e range [id number] Completed 201112/25/2020 OTHER ABNORMAL GLUCOSE; Recorded Elsewher e: No Locat ion: [facility] S ource: EHR Acute Care Clinical Nurse Specialist jaydon: N Jacintati ce ID: 0001 Coy lable Time: 01:00:00 PM Clare Gregg [facility] 14:34:16 Acute vaginiti s [id number] Completed 201512/25/2020 Vaginiti s;Record ed Elsewher e: No Locat ion: [facility] S ource: EHR Acute Care Clinical Nurse Specialist jaydon: N Jacintati ce ID: 0001 Coy lable Time: 02:45:00 PM Clarery Gregg [facility] 14:33:22 Family planning surveill ance Completed 201412/25/2020 Surveill ance of other contrace ptive method;R ecorded Elsewher e: No Locat ion: [facility] S ource: EHR Acute Care Clinical Nurse Specialist jaydon: N Jacintati ce ID: 0001 Coy lable Time: 11:30:00 AM Clare pro [facility] 1 14:33:58 Breast lump [id number] Completed 201712/25/2020 Unspecif ied lump in unspecif ied breast;R ecorded Elsewher e: No Locat ion: [facility] S ource: EHR Acute Care Clinical Nurse Specialist jaydon: N Jacintati ce ID: 0001 Coy lable Time: 10:30:00 AM Clare Gregg [facility] 1 14:33:30 Pain in female genitali a Completed 201612/25/2020 Dysmenor patricia, unspecif ied;Javier rded Elsewher e: No Locat ion: [facility]: Chad Neal ce ID: 0001 Coy lable Time: 05:15:00 PM Clare Gregg [facility] 1 14:34:00 Cyst of ovary Completed 201612/25/2020 Ovarian cyst, NOS;Javier rded Elsewher e: No Locat ion: [facility] S ource: EHR Acute Care Clinical Nurse Specialist jaydon: Chad Neal ce ID: 0001 Coy lable Time: 04:00:00 PM Clare pro [facility] 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 14:34:39 Adult health examinat ion Completed 201412/25/2020 Routine general medical examinat ion at a health care facility ;Practic e ID: 0001 Clare pro [facility] 14:33:24 Speciali zed medical examinat ion Completed 201412/25/2020 Routine gynecolo gical examinat ion;Prac dora ID: 0001 Clare pro [facility] 14:35:08 Pregnanc y test negative [id number] Completed 201412/25/2020 Encounte r for pregnanc y test, result negative ;Practic e ID: 0001 Clare pro [facility] 14:34:47 Ulcerati on of vulva [id number] Completed 201512/25/2020 Ulcerati on of vulva;Pr actice ID: 0001 Clare pro [facility] 14:35:03 Disease [id number] Completed 201512/25/2020 Oth cond assoc w female genital organs and menstrua l cycle;Pr actice ID: 0001 Clare pro [facility] 14:34:05 Neoplasm of uterine cervix Completed 201512/25/2020 Mild cervical dysplasi a;Practi ce ID: 0001 Clare pro [facility] 14:35:19 Sexual function painful Completed 201512/25/2020 Unspecif ied dyspareu dg;Prac dora ID: 0001 Clare pro [facility] 14:34:56 Acne [id number] Completed 201612/25/2020 Acne, unspecif ied;Prac dora ID: 0001 [facility] 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 14:34:07 Finding of regulari ty of menstrua l cycle Completed 201612/25/2020 Irregula r menstrua tion, unspecif ied;Prac dora ID: 0001 [facility] 14:34:10 Inflamma tion of cervix 64013714 Active 2016 Inflamma tory disease of cervix uteri;Pr actice ID: 0001 Not Available [facility] 0 16:59:00 Endometr iosis of uterus [id number] Completed 201612/25/2020 Endometr iosis of uterus;P ractice ID: 0001 [facility] 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 14:35:11 Benign neoplasm of skin of trunk [id number] Completed 201712/25/2020 Other benign neoplasm of skin of trunk;Pr actice ID: 0001 [facility] 14:33:27 Endometr iosis of pelvic peritone [id number] Completed 201712/25/2020 Endometr iosis of pelvic peritone um;Pract ice ID: 0001 [facility] 14:33:51 Follicul ar cyst of left ovary 53507031699 869810 Active 2017 Follicul ar cyst of left ovary;Pr actice ID: 0001 Not Available [facility] 0 16:59:02 Procedur e on genitour inary system Completed 201712/25/2020 Encounte r for surgical aftcr followin g surgery on the sys;Prac dora ID: 0001 [facility] 14:34:52 Postoper ative care Completed 201712/25/2020 Encounte r for surgical aftcr followin g surgery on the sys;Prac dora ID: 0001 [facility] 14:34:45 Postcoit al finding [id number] Completed 201812/25/2020 Postcoit al and contact bleeding ;Practic e ID: 0001 [facility] 14:34:43 Exposure to sexually transmis sible disorder Completed 201812/25/2020 Contact w and exposure to infect w a sexl mode of transmis s;Practi ce ID: 0001 [facility] 14:33:56 Finding of desire for urinatio n [id number] Completed 201812/25/2020 Urgency of urinatio n;Practi ce ID: 0001 [facility] 14:34:03 Syphilis test finding 430126664 Active 2018 Encntr screen for infectio ns w sexl mode of transmis s;Practi ce ID: 0001 Not Available [facility] 0 16:59:[address] Concept Completed 201712/25/2020 Encntr for general adult medical exam w/o abnormal findings ;Recorde d Elsewher e: No Locat ion: [facility] S ource: EHR Acute Care Clinical Nurse Specialist jaydon: N Practi ce ID: 0001 Coy lable Time: 01:30:00 PM Clare [facility] 1 14:35:13 Vaginola bial hernia Completed 201512/25/2020 Other specifie d noninfla mmatory disorder s of vagina;R ecorded Elsewher e: No Locat ion: [facility] S ource: EHR Acute Care Clinical Nurse Specialist jaydon: N Practi ce ID: 0001 Coy lable Time: 01:15:00 PM Clare Gregg [facility] 1 14:35:00 Evaluati on finding [id number] Completed 201712/25/2020 Oth abn and inconclu sive findings on dx imaging of breast;R ecorded Elsewher e: No Locat ion: [facility] S ource: EHR Acute Care Clinical Nurse Specialist jaydon: N Practi ce ID: 0001 Coy lable Time: 01:26:46 PM Clare Gregg [facility] 1 14:33:33 Primigra juaquin [id number] Completed 201112/25/2020 Supervis ion of normal first pregnanc y;Practi ce ID: 0001 Clare Gregg [facility] 1 14:34:50 Dietary manageme nt surveill ance Completed 201112/25/2020 Dietary surveill ance and counseli ng;Pract ice ID: 0001 Clare Gregg [facility] 14:33:48 Glucose toleranc e test during pregnanc y - baby not yet delivere d outside referenc e range 894412810 Completed 201112/25/2020 Gestatat ional Diabetes Antepart um;Pract ice ID: 0001 [facility] 14:33:20 Delivery normal [id number] Completed 201112/25/2020 Normal delivery ;Practic e ID: 0001 Clare pro [facility] 14:33:46 Single live from singleto n pregnanc y [id number] Completed 201112/25/2020 Mother with single liveborn ;Practic e ID: 0001 Clare Gregg [facility] 14:35:16 Screenin g for malignan t neoplasm of cervix Completed 201312/25/2020 Pap Smear;Pr actice ID: 0001 Clare Gregg [facility] 14:34:54 Problem Notes None recorded. Procedures Surgical History Date Name Laterality Status Provider Name and Address Organization Details Recorded Time 12/26/19 21 Date of Last Pap Smear completed Alice Ross [facility] 08/20/2024 12:51:43 02/23/20 17 Vaginal hysterectomy completed [facility] 04/07/2021 10:58:59 12/29/19 17 Colposcopy completed [facility] 09/25/2020 11:53:53 Hysteroscopy completed [facility] 09/25/2020 11:57:00 left oophorectomy completed [facility] 09/25/2020 11:58:17 augmentation mammoplasty completed [facility] 09/25/2020 11:59:31 repair of umbilical hernia completed [facility] 09/25/2020 11:59:50 Imaging Results Imaging Date Name Status [facility] by [facility] Details LastModified Time 04/13/2021 CT, abdomen + pelvis, w/ contrast completed [facility] [address], [place], [address], 04/15/2021 21:02:22 Procedure Notes None recorded. Medical Equipment None Reported. Allergies Allergen ID Allergen Name Allergen Category Reaction Reaction Severity Criticality Documentation Date Start Date Code Code System Note Provider Name and Address Organization Details Recorded Time 68499 doxycycli ne Not available Not available Not available Not available 06/26/2020 3640 RxNorm Comme nt: [facility]; Not Available [facility] 0 14:20:43 35668 morphine medicatio n Not available Not available Not available 06/26/2020 7052 RxNorm Comme nt: [facility]at [facility]; Not Available [facility] 0 14:20:43 Medications Name Sig Start Date Stop Date Status Note LastModified by Organization Details LastModified Time carisopro dol 350 mg tablet TAKE 1 TABLET BY MOUTH THREE TIMES DAILY NEEDED FOR MUSCLE SPASM active Not Available Not Available No t Available Mirena 21 mcg/24 hr (up to 8 years) 52 mg intrauter ine device 03/23 completed Prescrib ed Elsewher e: Yes Loca tion: [facility] odify By: [email or web address] Quintero ncounter DateTime : 12/13/19 17 04:00:00 PM Not Available Not Available Not Available prednison e 10 mg tablet 08/20 completed Not Available Not Available Not Available cetirizin e 10 mg tablet TAKE 1 TABLET BY MOUTH ONCE DAILY active Not Available Not Available No t Available azithromy maria del rosario 250 mg tablet TAKE 2 TABLETS BY MOUTH ON DAY 1, AND THEN TAKE 1 TABLET BY MOUTH ONCE A DAY ON DAY 2 THROUGH DAY 5 08/20 completed Not Available Not Available Not Available ibuprofen 800 mg tablet TAKE 1 TABLET BY MOUTH EVERY 8 HOURS NEEDED FOR PAIN 08/20 completed Not Available Not Available Not Available sumatript an 100 mg tablet active Not Available Not Available Not Available ondansetr on HCl 8 mg tablet TAKE 1 TABLET BY MOUTH TWICE DAILY NEEDED FOR NAUSEA active Not Available Not Available No t Available propranol ol ER 60 mg capsule,2 4 hr,extend ed release TAKE 1 CAPSULE BY MOUTH ONCE DAILY active Not Available Not Available No t Available acyclovir 400 mg tablet take 1 tablet by oral route every 12 hours 12/30 completed Prescrib ed Elsewher e: No [facility] By: shreyas perera DateTime : 03/06/20 02:05:18 PM Not Available Not Available Not Available ciproflox acin 500 mg tablet take 1 tablet by oral route every 12 hours 08/20 completed Not Available Not Available Not Available spironola ctone 25 mg tablet take 1 tablet by oral route every day 06/27 completed Prescrib ed Elsewher e: No Locat ion: [facility] odify By: shreyas perera DateTime : 05/26/20 15 01:00:00 PM Not Available Not Available Not Available Macrobid 100 mg capsule take 1 capsule by oral route every 12 hours with food, as directed 06/27 completed Prescrib ed Elsewher e: No Locat ion: [facility] odify By: shreyas perera DateTime : 05/16/20 17 01:30:00 PM Not Available Not Available Not Available Metrogel Vaginal 0.75 % (37.5 mg/5 gram) insert 1 applicat orful by vaginal route every day at bedtime 03/23 completed Prescrib ed Elsewher e: No Locat ion: [facility] odify By: home marquezuntsher DateTime : 02/17/20 17 02:00:00 PM Not Available Not Available Not Available estradiol 1 mg tablet TAKE 1 TABLET BY MOUTH ONCE DAILY active Not Available Not Available No t Available Depo-Prov era 150 mg/mL intramusc ular suspensio n inject 1 millilit er by intramus cular route every 3 months 03/23 completed Prescrib ed Elsewher e: No Locat ion: [facility] odify By: home [email or web address] DateTime : 12/23/19 17 03:15:00 PM Not Available Not Available Not Available amitripty line 10 mg tablet take 1 tablet by oral route 3 times every day 08/20 completed Prescrib ed Elsewher e: Yes Loca tion: [facility] odify By: [email or web address] Encounte r DateTime : 10/06/19 16 01:15:00 PM Not Available Not Available Not Available hydrocodo ne 7.5 mg-acetam inophen 325 mg tablet TAKE 1 TABLET BY MOUTH THREE TIMES DAILY NEEDED FOR PAIN active Not Available Not Available No t Available Valtrex 1 gram tablet take 1 tablet by oral route every day 12/30 completed Prescrib ed Elsewher e: No Locat ion: [facility] odify By: [email or web address] perera DateTime : 02/08/20 18 10:45:58 AM Not Available Not Available Not Available Banophen 25 mg capsule 08/20 completed Not Available Not Available Not Available [place] 10 mg-325 mg tablet take 1 tablet by oral route every 4 - 6 hours as needed for pain 08/20 completed Prescrib ed Elsewher e: Yes Loca tion: [facility] odify By: [email or web address] Encounte r DateTime : 10/06/19 16 01:15:00 PM Not Available Not Available Not Available estradiol 0.01% (0.1 mg/gram) vaginal cream insert (1G) by vagina every night for one month, then twice a week 08/20 completed Prescrib ed Elsewher e: No Locat ion: [facility] odify By: [email or web address] Encounte r DateTime : 08/15/19 19 04:00:00 PM Not Available Not Available Not Available methylpre dnisolone 4 mg tablets in a dose pack 08/20 completed Not Available Not Available Not Available Zofran 2 mg/mL intraveno us solution inject 2 millilit er by intraven ous route over for nausea or vomiting after surgery 08/20 completed Prescrib ed Elsewher e: Yes Loca tion: [facility] odify By: [email or web address] Encounte r DateTime : 10/06/19 16 01:15:00 PM Not Available Not Available Not Available amitripty line 100 mg tablet TAKE 1 TABLET BY MOUTH NIGHTLY active Not Available Not Available No t Available Depo-Prov era 150 mg/mL intramusc ular syringe inject 1 millilit er by intramus cular route every 3 months 10/05 completed Prescrib ed Elsewher e: No Locat ion: [facility] odify By: [email or web address] Encounte r DateTime : 02/05/20 15 12:03:02 PM Not Available Not Available Not Available Soma 250 mg tablet take 1 tablet by oral route 3 times every day before meals and at bedtime 08/15 completed Prescrib ed Elsewher e: Yes Loca tion: [facility] odify By: home [email or web address] DateTime : 10/06/19 16 01:15:00 PM Not Available Not Available Not Available Anusol-HC 2.5 % topical cream with perineal applicato r apply by topical route 2 times every day to the affected area(s) 12/12 completed Prescrib ed Elsewher e: No Locat ion: [facility] odify By: home ponder DateTime : 10/06/19 16 01:15:00 PM Not Available Not Available Not Available Vitals Date Recorded Body weight Systolic blood pressure Diastolic blood pressure Provider Name and Address Organization Details Last Updated DateTime 12/25/2020 65612.6 g 116 mm[Hg] 79 mm[Hg] [facility] 12/25/2020 14:32:56 Date Recorded Body weight Systolic blood pressure Diastolic blood pressure Provider Name and Address Organization Details Last Updated DateTime 04/08/2021 00986.01 g 112 mm[Hg] 76 mm[Hg] [facility] 04/08/2021 12:06:32 Date Recorded Body height Body mass index (BMI) Body weight Systolic blood pressure Diastolic blood pressure Provider Name and Address Organization Details Last Updated DateTime 04/26/2021 162.56 cm 22.5 kg/m2 04328.6 g 111 mm[Hg] 72 mm[Hg] [facility] 14:07:38 Date Recorded Body height Body mass index (BMI) Body weight Systolic blood pressure Diastolic blood pressure Provider Name and Address Organization Details Last Updated DateTime 08/20/2024 162.56 cm 30.2 kg/m2 13940.26 g 127 mm[Hg] 86 mm[Hg] Alice Ross [facility] 12:46:46 Social History Question Answer Notes LastModified by Organizat ion Details LastModified Time Tobacco Smoking Status Current Every Day Smoker Clare pro, [facility] 12/25/2020 14:36:00 At What Age Did You Start Smoking Tobacco? 15 Information not available 08/20/2024 How Much Tobacco Do You Smoke? 0.5 PPD Information not available 08/20/2024 Sex: Unknown Functional Status None recorded. Mental Status None recorded. Family History Relationship Description Onset Age of this Age Resolved Age Notes LastModified by Organization Details LastModified Time Maternal Grandmother Malignant tumor of breast [email or web address] Not available 2020 11:53:42 Medical History Condition Response Other Y History of STI Y History of abnormal pap Y Endometriosis Y Gynecological History Statement/Question Response Abnormal Pap Y Date of Last Mammogram Date of LMP 07/10/2015 On BCP's at Conception? N N Was last menstrual period normal N STIs/STDs Y HPV Vaccine N Colposcopy 12/28/2016 Duration of Flow (days) 4 Current Control Method Hysterectom y Age at First Child 31 Sexually Active? N Menses Monthly N Age of first menstrual cycle 13 Date of Last Pap Smear 12/25/2020 Sexual Problems? N LMP Unknown Y Obstetrics History GPAL:G 1 P 0 0 0 1 Type Value Living 1 Total 1 Past Encounters Encounter ID Performer Location Encounter Start Date Encounter Closed Date Diagnosis/Indication Diagnosis SNOMED-CT Code Diagnosis ICD10 Code Diagnosis Note [id number] Cory Bucio MD [place] [address] [address] 12/25/2020 14:24:50 12/25/2020 15:00:10 Gynecologic examination 91271478 Z01.419 This patient is here for her annual exam. A thorough history was taken. A physical exam was performed. Age appropriat e routine health screening was ordered, performed, and discussed. Recommende d testing was ordered. She was asked to follow up in one year. She will be informed of any test results. Pap - today [id number] Cory Bucio MD [place] [address],[facility] [place] [address] 04/08/2021 11:56:09 04/08/2021 14:06:42 Abdominal mass 141737004 R19.00 R10.9 this patient is a 40-year-ol d female with an intra-abdo tiana or abdominal wall mass. We will obtain a CT of the abdomen and pelvis. Will follow-up on those results. We will consider referral or treatment at that time. She was given precaution s. We spent more than 45 minutes on this case in its entirety. [id number] Cory Bucio MD [place] [address],[place] [address] 04/26/2021 13:56:44 04/27/2021 11:02:51 Abdominal pain 91498650 R10.9 This patient is a 40-year-ol d female who suffers from abdominal pain. We had a CT of the abdomen pelvis performed for a perceived abdominal mass. No evidence of abdominal mass was observed on the CT scan. No evidence of hernia. We discussed the results. We discussed potential diagnoses and further evaluation . We agreed that she would return to her primary care doctor for considerat ion of further evaluation . [id number] Cory Bucio MD [place] [address],[facility] [place] [address] 08/20/2024 12:00:48 08/20/2024 14:18:47 Gynecologic examination 13700595 Z01.419 Z11.51 This patient is here for her annual exam. A thorough history was taken. A physical exam was performed. Age appropriat e routine health screening was ordered, performed, and discussed. Recommende d testing was ordered. She was asked to follow up in one year. She will be informed of any test results. mammo - ordered2 labs - today Pap - today Abdominal mass 342849226 R19.00 R10.9 patient reports an abdominal mass. She has an upper abdominal mass. She has a history of hernia. At times it is painful. It resolves in the supine position. To obtain CT of the abdomen pelvis to rule out intra-abdo tiana masses. Health Concerns Section Related Observation LastModified by Organization Detai ls LastModified Time None Recorded Concern Status LastModified by Organization Details LastModified Time None Recorded Advance Directives Directive None Recorded Payers Encounter Date Sequence Insurance Name Policy Number Policy Soriano Covered Member ID Soriano Member ID Guarantor Name 12/25/2020 1 [facility] PRIOR TO 01/07/2021 (MEDICAID REPLACEMENT - HMO) Jess Frank Fillback Jess M Fillback 04/08/2021 1 [facility] ON OR AFTER 01/07/21 (MEDICAID REPLACEMENT - HMO) Jess Zac Fillback Jess M Fillback 04/26/2021 1 [facility] ON OR AFTER 01/07/21 (MEDICAID REPLACEMENT - HMO) Jess Zac Fillback Jess M Fillback 08/20/2024 1 [facility] ON OR AFTER 01/07/21 (MEDICAID REPLACEMENT - HMO) Jess Frank Fillback Jess M Fillback Notes Date Note Type Note Provider Name and Address Organization Details Recorded Time 12/25/2020 text/html Annual GYNReport ed bypatient.History:n o gynecologic complaints Menstrual cycle:Normal menses Urinary symptoms:No hematuria; No incontinence Vulva:No genital lesion Vagina:Normal vaginal discharge Breast:No breast pain; No breast lump; No nipple discharge Sexual complaints:No sexual complaints; No pain during intercourse; Normal libido Menopausal Symptoms:No menopausal symptoms;Inadequacy of lubrication of vaginal mucosa Psychological symptoms:No depression; No anxiety Preventive measures:Encourage self breast examination; Encourage regular exercise Cory Bucio MD [address], [place], [address], [facility] 12/25/2020 14:55:48 04/08/2021 text/html This patient is a 40-year-old female with an abdominal pain syndrome. The patient has new onset abdominal pain. She reports an abdominal mass. She has sharp left lower quadrant pain. It is constant. There are exacerbations. Pain is worse with movement. Pain is worse with palpation. There is no relief from bowel movements. She has regular bowel movements. The pain does not radiate. It is localized to the left lower quadrant area. She reports feeling a mass there. She states that the mass is about 3 cm. It is immobile. It has smooth surfaces. She denies any pain with urination, frequent urination blood in her urine. She denies any diarrhea, bloody stools, mucousy stools. She had a recent episode of migraine headache and abdominal pain that she recovered from quickly. She states that this pain is different than that The pain is been present for several weeks. She denies any vomiting, fever, chills. Cory Bucio MD [address], [place], [address], [facility] 04/08/2021 13:58:36 04/26/2021 text/html This patient is a 40-year-old female who suffers from abdominal pain. We had a CT of the abdomen pelvis performed for a perceived abdominal mass. No evidence of abdominal mass was observed on the CT scan. No evidence of hernia. We discussed the results. We discussed potential diagnoses and further evaluation. We agreed that she would return to her primary care doctor for consideration of further evaluation. Cory Bucio MD [address], [place], [address], [facility] 04/26/2021 20:22:24 08/20/2024 text/html Annual GYNReport ed bypatient.History:n o gynecologic complaints Menstrual cycle:Normal menses Urinary symptoms:No hematuria Vulva:No genital lesion Vagina:Normal vaginal discharge Breast:No breast pain; No breast lump Sexual complaints:No sexual complaints; No pain during intercourse Menopausal Symptoms:Hot flashes Psychological symptoms:No depression; No anxiety Preventive measures:Encourage self breast examination; Encourage regular exercise Cory Bucio MD [address], [place], [address], [facility] 08/20/2024 14:00:25 OBGyn Episode Ob Episode Information Episode Created Date Number of Fetuses Patient Bloodtype Patient rh Status Prepregnancy Weight lbs Domestic Partner Domestic Partner Phone Father Name Wallpaper Printer Status 09/26/19 21 1 CLOSED Fetus Data First Name Last Name Admitted to NICU Weight (g) Sex Living Outcome Pediatric Complications Fetus ID Race Codes Race Delivery Type 2636.27 [id number] Vaginal Delivery Dion Calculation Initial Dion Date Initial Exam Date Initial Exam Provider Initial Ultrasound Date Last Menstrual Period Date Ultra Sound Weeks Gestation 0 Eighteen To Twenty Week Dion Update Ultra Sound Date Fundal Height At Umbil Quickening Date Ultra Sound Latest Weeks Gestation Final Dion Confirmed By Final Dion Confirmed Date Final Dion Date Ultra Sound Latest Days Gestation 0 0 Menstrual History Last Menstrual Date Menses Monthly On Bcp Conception Prior Menses Frequency Hcg Plus Date Menarche Onset Age Delivery Information Delivery Date Delivery Type Labor Anesthesia Weeks Gestation Incision Type Labor Labor Length Hrs Delivered By Post Complications Tubal Sterilization Discharge Date Comments 2 35 Discharge Information Feeding Method Contraceptive Method Maternal HG B and HCT Levels
--- OUTSIDE RECORDS SUMMARY | 2024-11-18 10:37 | XMS_ITS | Clinical Summary ---
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
--- OUTSIDE RECORDS SUMMARY | 2024-11-18 10:37 | XMS_ITS | Clinical Summary ---
Author Organization [facility] Address [address] [place] [address] Care Team Providers Care Rn Telemetry Name Role Phone Eliel Khan MD Primary Care Provider [phone] Allergies Active Allergy Reactions Criticality Noted Date Comments Amoxicillin Rash Medium 09/04/2013 Cephalexin Rash Medium 09/04/2013 Doxycycline Headache,Rash,Swelli ng,Unkn own High 09/04/2013 Throat Swelling Morphine Rash,Unknown Medium 09/04/2013 Prochlorperazine Unknown Medications amitriptyline (ELAVIL) 100 mg tabletIndication s:Migraine Prevention,Cycli c Vomitting Syndrome Take 1 tablet (100 mg total) by mouth nightly Active carisoprodol (SOMA) 350 mg tabletIndication s:Muscle Spasm Take 1 tablet (350 mg total) by mouth 3 (three) times a day as needed for muscle spasms Active SUMAtriptan (IMITREX) 100 mg tabletIndication s:Migraine Take 1 tablet (100 mg total) by mouth once as needed for migraine Active HYDROcodone-acet aminophen (NORCO) 7.5-325 mg per tabletIndication s:Pain,Back and Neck Pain Take 1 tablet by mouth 3 (three) times a day Active propranolol LA (INDERAL LA) 60 mg 24 hr capsuleIndicatio ns:Migraine Prevention Take 1 capsule (60 mg total) by mouth nightly 8 Active cetirizine (ZyrTEC) 10 mg tabletIndication s:Seasonal Allergic Rhinitis Take 1 tablet (10 mg total) by mouth nightly 6 Active onabotulinumtoxi n A (BOTOX) 100 unit recon solnIndications: Migraine Prevention Inject 155 Units into the muscle as instructed as directed Every 3 months for Migraines 8 Active estradioL (ESTRACE) 1 mg tabletIndication s:hormone replacement Take 1 tablet (1 mg total) by mouth nightly 2 Active sepoclqg-xkc-jdo lucia gluconate 0.6 mg iron/mL liquidIndication s:HEALTH Take by mouth every morning ARINA RICKS Active biotin 1 mg capsuleIndicatio ns:HEALTH Take 2 capsules by mouth nightly Active calcium carbonate-vitami n D3 (Liquid Calcium with Vitamin D) 1,500 mg (600 mg elemental)-200 unit capsuleIndicatio ns:Hypocalcemia Prevention Take by mouth nightly ARINA RICKS Active gabapentin (NEURONTIN) 100 mg capsule Take 1 capsule (100 mg total) by mouth 3 (three) times a day 90 capsule 11 5 09/04/19 26 Active dicyclomine (BENTYL) 10 mg capsule Take 1 capsule (10 mg total) by mouth 4 (four) times a day as needed (abdominal pain) Take with meals and at bedtime 120 capsule 2 5 Active ondansetron (ZOFRAN) 8 mg tablet TAKE 1 TABLET BY MOUTH EVERY 6 HOURS NEEDED FOR NAUSEA (TAKES 3-4 TIMES PER DAY) FOR UP TO 21 DAYS 5 Active clindamycin (CLEOCIN) 300 mg capsule Take 1 capsule (300 mg total) by mouth 3 (three) times a day for 14 days 42 capsule 5 11/09/19 25 Active Problems Problem Noted Date Diagnosed Date 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 Disorder of soft tissue 08/18/2022 Overview (08/18/2022): Added automatically from request for surgery [id number] Neoplasm of skin 03/14/2019 Overview (08/19/2024): Acne, unspecified;Practice ID: 0001 Neoplasm of unsp behavior of bone, soft tissue, and skin;Recorded Elsewhere: No Location: [facility] Source: EHR Chronic: N Practice ID: [id number] Billable Time: 10:30:00 AM Neoplastic disease 03/14/2019 Overview (08/19/2024): Neoplasm of unsp behavior of bone, soft tissue, and skin;Recorded Elsewhere: No Location: [facility] Source: EHR Chronic: N Practice ID: [id number] [...] Overview (08/19/2024): LLQ pain;Recorded Elsewhere: No Location: [facility] Source: EHR Chronic: N Practice ID: 0001 Billable Time: 02:30:00 PM Breast lump 12/01/2017 Overview (08/19/2024): Unspecified lump in unspecified breast;Recorded Elsewhere: No Location: [facility] Source: EHR Chronic: N Practice ID: [id number] [...] (08/19/2024): Ovarian cyst, NOS;Recorded Elsewhere: No Location: [facility] Source: EHR Chronic: N Practice ID: [id number] Billable Time: 04:00:00 PM Unspecified ovarian cyst, right side;Recorded Elsewhere: No Location: [facility] Source: EHR Chronic: N Practice ID: [id number] Billable Time: 02:00:00 PM Pelvic and perineal pain 12/22/2016 Overview (08/19/2024): Pelvic and perineal pain;Recorded Elsewhere: No Location: [facility] Source: EHR Chronic: N Practice ID: 0001 Billable Time: 03:15:00 PM Pain of female genitalia 12/20/2016 Overview (08/19/2024): Dysmenorrhea, unspecified;Recorded Elsewhere: No Location: [facility] Source: EHR Chronic: N Practice ID: [id number] [...] cyto smr crvx (LGSIL);Recorded Elsewhere: No Location: [facility] Source: EHR Chronic: N Practice ID: 0001 Billable Time: 04:00:00 PM 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 (08/19/2024): Mild cervical dysplasia;Practice ID: 0001 Abdominal migraine, not intractable 05/06/2016 Migraine without aura and wi thout status migrainosus, not intractable 05/06/2016 Lymphadenopathy 10/21/2015 Overview (08/19/2024): Enlarged lymph nodes, unspecified;Recorded Elsewhere: No Location: [facility] Source: EHR Chronic: N Practice ID: [id number] Billable Time: 03:15:00 PM Lymphadenopathy 10/21/2015 Overview (08/19/2024): Enlarged lymph nodes, unspecified;Recorded Elsewhere: No Location: [facility] Source: EHR Chronic: N Practice ID: 0001 Billable Time: 03:15:00 PM Hemorrhoids 10/06/2015 Overview (08/19/2024): Hemorrhoid;Recorded Elsewhere: No Location: [facility] Source: EHR Chronic: N Practice ID: 0001 Billable Time: 01:15:00 PM Ulceration of vulva 10/06/2015 Overview (08/19/2024): Ulceration of vulva;Practice ID: 0001 Acute vaginitis 09/02/2015 Overview (08/19/2024): Vaginitis;Recorded Elsewhere: No Location: [facility] Source: EHR Chronic: N Practice ID: 0001 Billable Time: 02:45:00 PM Pain of breast 02/26/2015 Overview (08/19/2024): Mastodynia;Practice ID: 0001 Diarrhea 02/28/2014 Indigestion 02/28/2014 Non-intractable cyclical vomiting with nausea Abdominal hernia 07/17/2013 Overview (08/19/2024): Hernia of other specified sites without mention of obstruction or gangrene;Recorded Elsewhere: No Location: [facility] Source: EHR Chronic: N Practice ID: 0001 Billable Time: 01:00:00 PM Delivery normal 03/28/2012 Overview (08/19/2024): Normal delivery;Practice ID: 0001 Abnormal glucose level 03/20/2012 Overview (08/19/2024): OTHER ABNORMAL GLUCOSE;Recorded Elsewhere: No Location: [facility] Source: EHR Chronic: N Practice ID: 0001 Billable Time: 01:00:00 PM Abnormal glucose level 03/20/2012 Overview (08/19/2024): OTHER ABNORMAL GLUCOSE;Recorded Elsewhere: No Location: [facility] Source: EHR Chronic: N Practice ID: 0001 Billable Time: 01:00:00 PM Abnormal glucose tolerance t est (GTT) during , antepartum 03/06/2012 Overview (08/19/2024): Gestatational Diabetes Antepartum;Practice ID: 0001 Encounters Date Type Department Care Team Description 10/25/2024 1:22 PM CDT - 10/25/2024 11:59 PM CDT Hospital Encounter [facility] [address] [place] [id number] Aknur James MD Tenosynovial giant cell tumor of hand Discharge Disposition: Discharge to home or self care 10/25/2024 12:20 PM CDT Office Visit [facility] Orthopaedic Surgery [address] [place] [address] 6th [place] [address] [place] [address] Ankur James 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) 10/16/2024 Orders Only [facility] Health Information Management [address] [facility] [place] [address] Scanning, Provider 10/08/[address] [facility] Gastroenterology [address] [place] [address] Advanced Medicine 12th [place] [address] [place] [address] Pre Cert 10/02/2024 9:00 AM CDT Office Visit [facility] Gastroenterology [facility] Medicine 12th [place] [address] [place] [address] Marcelina Grullon MD Disease of digestive system; Stomach pain; Vomiting, unspecified vomiting type, unspecified whether nausea present 09/18/2024 9:10 AM CDT Office Visit [facility] Orthopaedic Surgery [address] [place] [address] Advanced Medicine 6th [place] [address] [place] [address] Ankur James 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) 09/12/[address] [facility] Orthopaedic Surgery [address] [facility] Advanced Medicine 6th [place] [address] [place] [address] Ankur James MD 09/10/2024 9:10 AM WHEAT CLEANER - 09/10/2024 11:59 PM WHEAT CLEANER Hospital Encounter [facility] ([facility]) [address] [place] [address] Screening mammogram, encounter for Discharge Disposition: Discharge to home or self care 09/04/2024 2:00 PM WHEAT CLEANER - 09/04/2024 3:15 PM WHEAT CLEANER Surgery [facility] [address] [place] [address] Ankur James MD EXCISION CYST/LESION/MASS - HAND- left Thumb Excision of Mass 09/04/2024 1:31 PM WHEAT CLEANER Anesthesia Event [facility] [address] [place] [address] Leslie Lopez MD Gangloff, Kerry Marie, NP 09/04/2024 11:50 AM WHEAT CLEANER - 09/04/2024 3:08 PM WHEAT CLEANER Hospital Encounter [facility] [address] [place] [address] Ankur James MD Giant cell tumor of tendon sheath Discharge Disposition: Discharge to home or self care from Last 3 Months Surgical History Surgery Date Site/Laterality Comments BREAST SURGERY Bilateral Augmentation UMBILICAL HERNIA REPAIR 07/10/2013 - 07/09/2014 with mesh ; MRSA HYSTERECTOMY 02/07/2017 - 03/09/2017 With right salpingo-oophorectomy LAPAROSCOPIC SALPINGOOPHERECTOMY 04/09/20 18 - 05/09/2018 Left With lysis of adhesions CHOLECYSTECTOMY 07/10/2003 - 07/09/2004 BACK SURGERY 07/10/2015 - 07/09/2016 L5/S1 Titanium THUMB SURGERY 09/04/2024 Left Giant Cell Tumor Excision Medical History Medical History Date Comments Migraines Controlled with Amitriptyline, Propranolol and Botox injectionss Q 3 Months Anxiety Cyclical vomiting syndrome Takes Zofran 3-4 times per day to treat. 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 Never 09/04/2024 Q2: How many drinks containi ng alcohol do you have on a typical day when you are drinking? Patient does not drink Q3: How often do you have si x or more drinks on one occasion? Never 09/04/2024 Personal Safety Answer Date Recorded Have you ever been in or are you currently in a harmful physical or emotional relationship or is someone making you feel afraid or unsafe? Denies 09/04/2024 Comments No Sex and Gender Information Value Date Recorded Sex Assigned at Not on file Legal Sex Female 7:30 PM WHEAT CLEANER Gender Identity Not on file Sexual Orientation Not on file Obstetrics History Last Filed Vital Signs Vital Sign Reading Time Taken Comments Blood Pressure 112/81 10/02/2024 9:13 AM CDT Pulse 77 10/02/2024 9:13 AM CDT Temperature 36.3 C (97.3 F) 10/02/2024 9:13 AM CDT Respiratory Rate 20 09/04/2024 2:55 PM WHEAT CLEANER Oxygen Saturation 96% 09/04/2024 2:55 PM WHEAT CLEANER Inhaled Oxygen Concentration - - Weight 81.6 kg (180 lb) 10/02/2024 9:13 AM CDT Height 162.6 cm (5' 4 ) 10/02/2024 9:13 AM CDT Body Mass Index 30.9 10/02/2024 9:13 AM CDT Plan of Treatment Health Maintenance Due Date Last Done Comments Depression Screening 1980 Hepatitis C Screening 1980 Varicella Vaccines (1 of 2 - 13+ 2-dose series) 1994 Hepatitis B Screening 12/03/1999 Regular Well Visit/Exam 18-64 12/03/1999 Pneumococcal vaccine <65 (1 of 2 - PCV) 2000 DTaP/Tdap/Td Vaccine (3 - Td or Tdap) 03/28/2022 03/28/2012, 07/10/2011, 02/29/1996 Influenza Vaccine (Season Ended) 2025 Breast Cancer Screening-Mammogram 09/10/2025 09/10/2024 HPV Vaccines Aged Out No longer eligi ble based on patient's age to complete this topic Medical Devices Implanted Type Area Storage Worker Device Identifier Shelf Expiration Date Model / Serial / Lot Titanium Hardware To Lumbar Area Spine Lumbar Procedures Procedure Name Priority Date/Time Associated Diagnosis Comments XR HAND LEFT 3 OR MORE VIEWS Schedule Routine, Read Routine (OP Routine) 10/25/2024 1:33 PM CDT Tenosynovial giant cell tumor of hand SCAN - OTHER ORDERS 10/16/2024 SCREENING MAMMOGRAM BILATERAL W CHAIM W IMPLANTS Schedule Routine, Read Routine (OP Routine) 09/10/2024 9:33 AM WHEAT CLEANER Screening mammogram, encounter for SURGICAL PATHOLOGY Routine 09/04/2024 1: 48 PM WHEAT CLEANER Giant cell tumor of tendon sheath AL AN PROCEDURE PLACEHOLDER Routine 09/04/2024 1:44 PM WHEAT CLEANER AL AN ELECTIVE SUPRAGLOTTIC AIRWAY Routine 09/04/2024 1:44 PM WHEAT CLEANER EXCISION CYST/LESION/MASS - HAND 09/04/2024 1:33 PM WHEAT CLEANER Giant cell tumor of tendon sheath Special Needs Stretcher with hand table; Non Sterile Tourniquet0.5% Marcaine with epiAncef2-0 Nylon from Last 3 Months Results * X-ray hand left 3+ views (10/25/2024 1:33 PM CDT) Anatomical Region Laterality Modality Upper Extremities, Hand Left Computed Radiography 10/25/2024 2:37 PM CDT Impressions 10/25/2024 5:16 PM CDT 1. No soft tissue abnormality. No suspicious lytic or blastic lesion. Dictated by: Leroy Bell M.D. The radiology attending physician has personally reviewed this study, and had reviewed and/or edited this written report and agrees with it. Electronically signed by: Shyam Davis D.O. Narrative 10/25/2024 5:16 PM CDT EXAMINATION: XR HAND LEFT 3 OR MORE VIEWS HISTORY: Left thumb mass. FINDINGS: 3 radiographs of the left hand are submitted for interpretation with comparison made to 08/19/2024. The alignment is normal. No acute fracture. No suspicious lytic or blastic lesion. No soft tissue abnormality. The joint spaces are preserved. Procedure Note Shyam Davis, DO - 10/25/2024 EXAMINATION: XR HAND LEFT 3 OR MORE VIEWS HISTORY: Left thumb mass. FINDINGS: 3 radiographs of the left hand are submitted for interpretation with comparison made to 08/19/2024. The alignment is normal. No acute fracture. No suspicious lytic or blastic lesion. No soft tissue abnormality. The joint spaces are preserved. IMPRESSION: 1. No soft tissue abnormality. No suspicious lytic or blastic lesion. Dictated by: Leroy Bell M.D. The radiology attending physician has personally reviewed this study, and had reviewed and/or edited this written report and agrees with it. Electronically signed by: Shyam Davis D.O. us Ankur James MD IMG XR PROCEDURES Final Re sult * SCAN - OTHER ORDERS (10/16/2024) us Provider Scanning Final Result * Screening Mammogram Bilateral W Chaim W Implants (09/10/2024 9:33 AM WHEAT CLEANER) Anatomical Region Laterality Modality Breast Bilateral Mammography Narrative 09/11/2024 9:43 AM WHEAT CLEANER Mammogram Technique: Bilateral Digital Breast Tomosynthesis, Bilateral C-view 2D Screening mammogram. Views obtained: bilateral craniocaudal; bilateral craniocaudal implant displaced; bilateral mediolateral oblique; and bilateral mediolateral oblique implant displaced. Computer Aided Detection was performed. Mammogram Findings: No prior imaging studies are available for comparison. There are scattered areas of fibroglandular density. There are bilateral sub-pectoral saline implants. There is no suspicious abnormality in either breast. Normal implants. Impression: Implants are mammographically intact. There is no mammographic evidence of malignancy. Annual screening mammography is recommended. OVERALL FINAL ASSESSMENT: BI-RADS CATEGORY 1: Negative. Procedure Note Kimberlyn Diaz MD - 09/11/2024 Mammogram Technique: Bilateral Digital Breast Tomosynthesis, Bilateral C-view 2D Screening mammogram. Views obtained: bilateral craniocaudal; bilateralcraniocaudal implant displaced; bilateral mediolateral oblique; and bilateral mediolateral oblique implant displaced. Computer Aided Detection was performed. Mammogram Findings: No prior imaging studies are available for comparison. There are scattered areas of fibroglandular density. There are bilateral sub-pectoral saline implants. There is no suspicious abnormality in either breast. Normal implants. Impression: Implants are mammographically intact. There is no mammographic evidence of malignancy. Annual screening mammography is recommended. OVERALL FINAL ASSESSMENT: BI-RADS CATEGORY 1: Negative. us Self Screening Mammogram IMG MAMMO PROCEDURES Fi nal Result * Surgical pathology (09/04/2024 1:48 PM WHEAT CLEANER) Tissue specimen (specimen) (Mass/Tumor/Lesio n) 09/04/2024 1:48 PM WHEAT CLEANER Narrative PATHOLOGY MERGED WITH [facility] - 09/09/2024 2:23 PM WHEAT CLEANER EPIC results best viewed via link to PDF [facility] of Surgical Pathology [facility] [place] [address] Note to Patients: This report may contain a detailed description of human tissue sent by a health care provider to the laboratory for pathologic evaluation. The content of this report is essential for diagnosis and may provide important critical findings. This information may be unfamiliar to patients to review without a medical professional present. It is advised that the patient review this report in the presence of a health care provider who can answer questions and explain the details. SURGICAL PATHOLOGY REPORT FINAL Patient Name: JESS MICHAEL Gender: F : 1980 (Age: 43) Address: [address] [place] [id number] Hospital #: [id number] Taken:09/04/2024 Received:09/04/2024 Reported: 09/09/2024 Patient Type: [facility] Service: Ortho Location: Physician(s): Louise Frey M.D. Diagnosis: Soft tissue, left thumb, excision - Tenosynovial giant cell tumor dale/09/09/2024 08:31 By this signature, I attest that the above diagnosis is based upon my personal examination of the slides(and/or other material indicated in the diagnosis). Driss Jimenes M.D. Report Electronically Reviewed and Signed Out By Driss Jimenes M.D. 09/09/2024 14:23:59 Genet Klein M.D. History: The patient is a 43-year-old woman with a giant cell tumor of tendon sheath. Operative Procedure: Left thumb mass excision. Specimen(s) Received: A: Left thumb mass Gross Description: Received in formalin labeled with the patient's identifiers and left thumb mass is a 0.6 x 0.6 x 0.3 cm potter to potter-white tissue fragment. Entirely submitted as is in A1. Jar 0. dxb/09/05/2024 11:58 PA(s): DINO Harper, LIVAN(ASCP)CM By this signature, I attest that the above diagnosis is based upon my personal examination of the slides(and/or other material). Addenda/Procedures The performance characteristics of some immunohistochemical stains, fluorescence in-situ hybridization tests and immunophenotyping by flow cytometry cited in this report (if any) were determined by the Surgical Pathology and Flow Cytometry Departments at [facility] as part of an ongoing quality control head program and in compliance with federally mandated regulations drawn from the Clinical Laboratory Improvement Act of 1988 (CLIA '88). Some of these tests rely on the use of analyte specific reagents and are subject to specific labeling requirements by the US Food and Drug Administration. Such diagnostic tests may only be performed in a facility that is certified by the Department of Health and Human Services as a high complexity laboratory under CLIA '88. The FDA has determined that such clearance or approval is not necessary. This test is used for clinical purposes. It should not be regarded as investigational or for research. Nevertheless, federal rules concerning the medical use of analyte specific reagents require that the following disclaimer be attached to the report: This test was developed and its performance characteristics determined by the Surgical Pathology and Flow Cytometry Departments of [facility]. It has not been cleared or approved by the U. S. Food and Drug Administration. IMAGES AND SCANNED DOCUMENTS, IF INCLUDED, ONLY VIEWABLE IN PDF VERSION OF REPORT Ankur James MD LAB PATHOLOGY ORDERABLES F inal Result PATHOLOGY [facility] 3rd Floor [place], [place] [phone] * AL AN ELECTIVE SUPRAGLOTTIC AIRWAY, AL AN PROCEDURE PLACEHOLDER (09/04/2024 1:44 PM WHEAT CLEANER) Narrative Hortensia Starr CRNA - 09/04/2024 1:44 PM WHEAT CLEANER Hortensia Starr CRNA 09/04/2024 1:44 PM Airway Patient location: OR Urgency: elective Indications for airway management: anesthesia Difficult airway: no Staff: Placed by: CUSHION STUFFER: Hortensia Starr CRNA Airway prep: Preoxygenated: yes Patient position: sniffing Mask difficulty assessment: 0 - not attempted Spontaneous ventilation during airway: absent Sedation level during airway: GA Final airway details: Final airway type: supraglottic airway Final supraglottic airway: unique SGA size: 4 Number of attempts: 1no us Leslie Lopez MD ANESTHESIA ORDERABLES Fi nal Result from Last 3 Months Insurance [facility] MEDICAID [facility] Advance Directives For more information, please contact: [phone] Documents on File Type Date Recorded Patient Email Engineer Expl anation ADVANCE DIRECTIVE 07/23/2013 12:00 AM VARUN Nagel OF PICKING MACHINE OPERATOR FINANCIAL/MEDICAL Care Teams Rn Telemetry Relationship Specialty Start Date End Date Eliel Khan MD [address] [place] [address] PCP - General 08/07/17
--- OUTSIDE RECORDS SUMMARY | 2024-11-18 10:37 | XMS_ITS | Referral Summary ---
Author Organization [facility] Address [address] [place] [address] Care Team Providers Care Poll Watcher Name Role Phone Eliel Khan MD Primary Care Provider [phone] Encounters Date Type Department Care Team Description 10/25/2024 1:22 PM CDT - 10/25/2024 11:59 PM CDT Hospital Encounter 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 Health Information Management [address] [facility] [place] [address] Scanning, Provider 10/08/2024 Telephone [facility] Gastroenterology [address] [facility] 12th [place] [address] [place] [address] Pre Cert 10/02/2024 9:00 AM CDT Office Visit [facility] Gastroenterology [address] [facility] 12th [place] [address] [place] [address] Marcelina Grullon MD Disease of digestive system; Stomach pain; Vomiting, unspecified vomiting type, unspecified whether nausea present 09/18/2024 9:10 AM CDT Office Visit [facility] Orthopaedic Surgery [address] [facility] 6th [place] [address] [place] [address] Ankur James 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) 09/12/2024 Orders Only [facility] Orthopaedic Surgery [address] [facility] 6th [place] [address] [place] [address] Ankur aJmes MD 09/10/2024 9:10 AM REALTIME CAPTIONER - 09/10/2024 11:59 PM REALTIME CAPTIONER Hospital Encounter [facility] Breast Imaging [facility] ([facility] [address] [place] [address] Screening mammogram, encounter for Discharge Disposition: Discharge to home or self care 09/04/2024 2:00 PM REALTIME CAPTIONER - 09/04/2024 3:15 PM REALTIME CAPTIONER Surgery [facility] [address] [place] [address] Ankur James MD EXCISION CYST/LESION/MASS - HAND- left Thumb Excision of Mass 09/04/2024 1:31 PM REALTIME CAPTIONER Anesthesia Event [facility] [address] [address] Leslie Lopez MD Gangloff, Kerry Marie, NP 09/04/2024 11:50 AM REALTIME CAPTIONER - 09/04/2024 3:08 PM REALTIME CAPTIONER Hospital Encounter 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 Discharge Disposition: Discharge to home or self care from Last 3 Months Allergies Active Allergy Reactions Criticality Noted Date [...] mg total) by mouth nightly 2 Active vloxjodf-xuz-agg lucia gluconate 0.6 mg iron/mL liquidIndication s:HEALTH [...] (08/18/2022): Added automatically from request for surgery [id number] Neoplasm of skin 03/14/2019 Overview (08/19/2024): Acne, unspecified;Practice ID: 0001 Neoplasm of unsp behavior of bone, soft tissue, and skin;Recorded Elsewhere: No Location: [facility] Source: EHR Chronic: N Practice ID: 0001 Billable Time: 10:30:00 AM Neoplastic disease 03/14/2019 Overview (08/19/2024): Neoplasm of unsp behavior of bone, soft tissue, and skin;Recorded Elsewhere: No Location: [facility] Source: EHR Chronic: N Practice ID: [...] Overview (08/19/2024): LLQ pain;Recorded Elsewhere: No Location: [facility] Source: EHR Chronic: N Practice ID: 0001 Billable Time: 02:30:00 PM Breast lump 12/01/2017 Overview (08/19/2024): Unspecified lump in unspecified breast;Recorded Elsewhere: No Location: [facility] Source: EHR Chronic: N Practice ID: [...] (08/19/2024): Ovarian cyst, NOS;Recorded Elsewhere: No Location: [facility] Source: EHR Chronic: N Practice ID: 0001 Billable Time: 04:00:00 PM Unspecified ovarian cyst, right side;Recorded Elsewhere: No Location: [facility] Source: EHR Chronic: N Practice ID: 0001 Billable Time: 02:00:00 PM Pelvic and perineal pain 12/22/2016 Overview (08/19/2024): Pelvic and perineal pain;Recorded Elsewhere: No Location: [facility] Source: EHR Chronic: N Practice ID: 0001 Billable Time: 03:15:00 PM Pain of female genitalia 12/20/2016 Overview (08/19/2024): Dysmenorrhea, unspecified;Recorded Elsewhere: No Location: [facility] Source: EHR Chronic: N Practice ID: [...] cyto smr crvx (LGSIL);Recorded Elsewhere: No Location: [facility] Source: EHR Chronic: N Practice ID: 0001 Billable Time: 04:00:00 PM 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 (08/19/2024): Mild cervical dysplasia;Practice ID: 0001 Abdominal migraine, not intractable 05/06/2016 Migraine without aura and wi thout status migrainosus, not intractable 05/06/2016 Lymphadenopathy 10/21/2015 Overview (08/19/2024): Enlarged lymph nodes, unspecified;Recorded Elsewhere: No Location: [facility] Source: EHR Chronic: N Practice ID: 0001 Billable Time: 03:15:00 PM Lymphadenopathy 10/21/2015 Overview (08/19/2024): Enlarged lymph nodes, unspecified;Recorded Elsewhere: No Location: [facility] Source: EHR Chronic: N Practice ID: 0001 Billable Time: 03:15:00 PM Hemorrhoids 10/06/2015 Overview (08/19/2024): Hemorrhoid;Recorded Elsewhere: No Location: [facility] Source: EHR Chronic: N Practice ID: 0001 Billable Time: 01:15:00 PM Ulceration of vulva 10/06/2015 Overview (08/19/2024): Ulceration of vulva;Practice ID: 0001 Acute vaginitis 09/02/2015 Overview (08/19/2024): Vaginitis;Recorded Elsewhere: No Location: [facility] Source: EHR Chronic: N Practice ID: 0001 Billable Time: 02:45:00 PM Pain of breast 02/26/2015 Overview (08/19/2024): Mastodynia;Practice ID: 0001 Diarrhea 02/28/2014 Indigestion 02/28/2014 Non-intractable cyclical vomiting with nausea Abdominal hernia 07/17/2013 Overview (08/19/2024): Hernia of other specified sites without mention of obstruction or gangrene;Recorded Elsewhere: No Location: [facility] Source: EHR Chronic: N Practice ID: 0001 Billable Time: 01:00:00 PM Delivery normal 03/28/2012 Overview (08/19/2024): Normal delivery;Practice ID: 0001 Abnormal glucose level 03/20/2012 Overview (08/19/2024): OTHER ABNORMAL GLUCOSE;Recorded Elsewhere: No Location: [facility] Source: EHR Chronic: N Practice ID: 0001 Billable Time: 01:00:00 PM Abnormal glucose level 03/20/2012 Overview (08/19/2024): OTHER ABNORMAL GLUCOSE;Recorded Elsewhere: No Location: [facility] Source: EHR Chronic: N Practice ID: 0001 Billable Time: 01:00:00 PM Abnormal glucose tolerance t est (GTT) during , antepartum 03/06/2012 Overview (08/19/2024): Gestatational Diabetes Antepartum;Practice ID: 0001 Social History Tobacco Use Types Packs/Day Years [...] on file Legal Sex Female 7:30 PM REALTIME CAPTIONER Gender Identity Not on file Sexual Orientation Not on file Last Filed Vital Signs Vital Sign Reading Time Taken Comments Blood Pressure 112/81 10/02/2024 9:13 AM CDT Pulse 77 10/02/2024 9:13 AM CDT Temperature 36.3 C (97.3 F) 10/02/2024 9:13 AM CDT Respiratory Rate 20 09/04/2024 2:55 PM REALTIME CAPTIONER Oxygen Saturation 96% 09/04/2024 2:55 PM REALTIME CAPTIONER Inhaled Oxygen Concentration - - Weight 81.6 kg (180 lb) 10/02/2024 9:13 AM CDT Height 162.6 cm (5' 4 ) 10/02/2024 9:13 AM CDT Body Mass Index 30.9 10/02/2024 9:13 AM CDT Plan of Treatment Not on file Medical Devices Implanted Type Area Rigging Up Man Device Identifier Shelf Expiration Date Model / [...] Read Routine (OP Routine) 09/10/2024 9:33 AM REALTIME CAPTIONER Screening mammogram, encounter for SURGICAL PATHOLOGY Routine 09/04/2024 1: 48 PM REALTIME CAPTIONER Giant cell tumor of tendon sheath AR AN PROCEDURE PLACEHOLDER Routine 09/04/2024 1:44 PM REALTIME CAPTIONER AR AN ELECTIVE SUPRAGLOTTIC AIRWAY Routine 09/04/2024 1:44 PM REALTIME CAPTIONER EXCISION CYST/LESION/MASS - HAND 09/04/2024 1:33 PM REALTIME CAPTIONER Giant cell tumor of tendon sheath Special [...] The joint spaces are preserved. Procedure Note PrakashmellyShyam Jannette, DO - 10/25/2024 EXAMINATION: XR HAND LEFT [...] it. Electronically signed by: Shyam Davis D.O. Ankur James MD IMG XR PROCEDURES Final Re sult * SCAN - OTHER ORDERS (10/16/2024) us Provider Scanning Final Result * Screening Mammogram Bilateral W Chaim W Implants (09/10/2024 9:33 AM REALTIME CAPTIONER) Anatomical Region Laterality Modality Breast Bilateral Mammography Narrative 09/11/2024 9:43 AM REALTIME CAPTIONER Mammogram Technique: Bilateral Digital Breast Tomosynthesis, Bilateral [...] Result * Surgical pathology (09/04/2024 1:48 PM REALTIME CAPTIONER) Tissue specimen (specimen) (Mass/Tumor/Lesio n) 09/04/2024 1:48 PM REALTIME CAPTIONER Narrative PATHOLOGY [facility] - 09/09/2024 2:23 PM REALTIME CAPTIONER EPIC results best viewed via link to PDF [facility] [address] [facility], [place] [address] Note to Patients: This report may contain [...] Gender: F : 1980 (Age: 43) Address: [address] [place], [place] [id number] Hospital #: [id number] Taken:09/04/2024 Received:09/04/2024 Reported: 09/09/2024 Patient Type: [facility] Service: Ortho Location: Physician(s): Louise Frey M.D. [...] Jar 0. dxb/09/05/2024 11:58 PA(s): DINO Harper, LIV[facility]CM By this signature, I attest that the above diagnosis is based upon my personal examination of the slides(and/or other material). Addenda/Procedures The performance characteristics of some immunohistochemical stains, fluorescence in-situ hybridization tests and immunophenotyping by flow cytometry cited in this report (if any) were determined by the Surgical Pathology and Flow Cytometry Departments at [facility] as part of an ongoing senior quality assurance analyst program and in compliance with federally mandated [...] Surgical Pathology and Flow Cytometry Departments of [facility]. It has not been cleared or approved by the U. S. Food and Drug Administration. IMAGES AND SCANNED DOCUMENTS, IF INCLUDED, ONLY VIEWABLE IN PDF VERSION OF REPORT Ankur James MD LAB PATHOLOGY ORDERABLES F inal Result PATHOLOGY [facility] 3rd Floor [place], [place] [phone] * AR AN ELECTIVE SUPRAGLOTTIC AIRWAY, AR AN PROCEDURE PLACEHOLDER (09/04/2024 1:44 PM REALTIME CAPTIONER) Narrative Hortensia Starr CRNA - 09/04/2024 1:44 PM REALTIME CAPTIONER Hortensia Starr CRNA 09/04/2024 1:44 PM Airway Patient location: OR Urgency: elective Indications for airway management: anesthesia Difficult airway: no Staff: Placed by: RAJANI: Hortensia Starr CRNA Airway prep: Preoxygenated: yes Patient position: sniffing Mask difficulty assessment: 0 - not attempted Spontaneous ventilation during airway: absent Sedation level during airway: GA Final airway details: Final airway type: supraglottic airway Final supraglottic airway: unique SGA size: 4 Number of attempts: 1no us Leslie Lopez MD ANESTHESIA ORDERABLES Fi nal Result from Last 3 Months Insurance [facility] MEDICAID [facility] Advance Directives For more information, please contact: [phone] Documents on File Type Date Recorded Patient Quill Reamer Expl anation ADVANCE DIRECTIVE 07/23/2013 12:00 AM VARUN Nagel OF [employer] FINANCIAL/MEDICAL Care Teams Poll Watcher Relationship Specialty Start Date End Date Eliel Khan MD [address] [place] [address] PCP - General 08/07/17
--- OUTSIDE RECORDS SUMMARY | 2024-11-18 10:37 | XMS_ITS | Clinical Summary ---
Author Organization [employer] [facility] Address [address] [place] [address] Care Team Providers Care Home And Family Living Professor Name Role Phone Unavailable Primary Care Provider Unavailabl e Social History Tobacco Use Types Packs/Day Years Used Date Smoking Tobacco: Never Assessed Comments Unknown Sex and Gender Information Value Date Recorded Sex Assigned at Not on file Legal Sex Female 11:29 AM CDT Gender Identity Not on file Sexual Orientation Not on file Plan of Treatment Health Maintenance Due Date Last Done Comments DTAP/TDAP/TD VACCINES (1 - Tdap) 2000 HEPATITIS B VACCINES (1 of 3 - 19+ 3-dose series) 2000 HPV/Cotest (21-29) 2002 CERVICAL CANCER SCREENING 12/03/2011 HPV/Cotest (30-65) 12/03/2011 PAP SMEAR 12/03/2011 BREAST CANCER SCREENING 2021 INFLUENZA VACCINE (#1) 2024 HPV VACCINES Aged Out No longer eligi ble based on patient's age to complete this topic
== END 2024-11-18 10:26 | disposition home or self-care (01) ==
PROVIDERS: PCP Internal Medicine; Visit Provider Obstetrics & Gynecology
DX: K76.0 Fatty (change of) liver, not elsewhere classified (principal); R19.00 Intra-abdominal and pelvic swelling, mass and lump, unspecified site
CPT/HCPCS: 74177; Q9967